=== PATIENT | female | born 1970 | race Caucasian/White ===

== ENCOUNTER → 2017-10-29 | Outpatient (CLI) | payer BC ==
--- NOTE | 2017-10-29 11:22 | US ---
EXAMINATION TYPE: US liver DATE OF EXAM: 10/29/2017 COMPARISON: CT CLINICAL HISTORY: R94.5 Abnormal Liver Function Test. EXAM MEASUREMENTS: Liver Length: 18.3 cm Gallbladder Wall: 0.2 cm CBD: 0.6 cm Right Kidney: 11.2 x 7.3 x 4.7 cm Large body habitus Pancreas: hyperechoic Liver: attenuated posteriorly and hyperechoic suggests fatty liver Gallbladder: wnl Evidence for sonographic Lynn's sign: No CBD: wnl Right Kidney: No hydronephrosis or masses seen IMPRESSION: 1. Fatty liver.
== END | disposition home or self-care (01) ==
LOC: RADUSWWP 10:44
PROVIDERS: ATTEND Internal Medicine
DX: K76.0 Fatty (change of) liver, not elsewhere classified (principal); R94.5 Abnormal results of liver function studies
CPT/HCPCS: 76705

== ENCOUNTER 2018-07-10 13:38 | Emergency (ER) | payer BC, OTHER ==
[2018-07-10 13:46] VITALS: RESP 16
[2018-07-10] MEDS ORDERED: KETOROLAC 60 MG/2 ML VIAL IM STA (13:59)
--- NOTE | 2018-07-10 14:10 | ED ---
Back Pain HPI - General Chief Complaint: Back Pain/Injury Stated Complaint: Fall Source: patient Limitations: no limitations - History of Present Illness Initial Comments: 47-year-old female with past medical history of diabetes and chronic back pain presenting today for chief complaint of fall. Patient states she was at work, at an elevated housing a half-way. She states she was walking down the steps , that were not yet shoveled when she fell then slid down 3-4 steps. She denies any head or neck injury, loss of consciousness, or current headache. Patient does admit to lower thoracic back pain where she made initial contact as well as some lumbar low back pain. Patient states it feels mostly muscular. Patient states pain increases with palpation. Denies any loss of bowel bladder control, urinary retention, numbness, tingling paresthesias in lower extremities. Patient denies any hip knee ankle pain or injury to any other extremity. Pt did note some superficial scratches of the left forearm, she states tetanus up to date in the last 5 years. Remainder of ROS (-), patient denies any recent fever, chills, shortness of breath, chest pain, back pain, abdominal pain, nausea or vomiting, numbness or tingling, dysuria or hematuria, constipation or diarrhea, headaches or visual changes, or any other complaints. Upon arrival patient is well-appearing, ambulatory without difficulty. She denies taking any medication prior to arrival. - Related Data Home Medications Medication Instructions Recorded Confirmed Ergocalciferol [Vitamin D2] 50,000 unit PO MO 07/10/18 07/10/18 Liraglutide [Victoza 2-Brennan] 1.8 mg SQ DAILY 07/10/18 07/10/18 Olmesartan [Benicar] 20 mg PO DAILY 07/10/18 07/10/18 Previous Rx's Medication Instructions Recorded Cyclobenzaprine [Flexeril] 10 mg PO HS 5 Days #5 tab 07/10/18 Allergies Allergy/AdvReac Type Severity Reaction Status Date / Time erythromycin base Allergy Rash/Hives Verified 07/10/18 13:57 hydromorphone HCl Allergy Unknown Verified 07/10/18 13:57 [From Dilaudid] Penicillins Allergy Rash/Hives Verified 07/10/18 13:57 Review of Systems ROS Statement: Those systems with pertinent positive or pertinent negative responses have been documented in the HPI. ROS Other: All systems not noted in ROS Statement are negative. Past Medical History Past Medical History: Diabetes Mellitus History of Any Multi-Drug Resistant Organisms: MRSA Date of last positivie culture/infection: 2012 MDRO Source:: stomach Past Surgical History: Section Additional Past Surgical History / Comment(s): cyst removal on right knee Past Psychological History: No Psychological Hx Reported Smoking Status: Former smoker Past Alcohol Use History: Rare Past Drug Use History: None Reported General Exam - General Exam Comments Initial Comments: General: The patient is awake and alert, in no distress, and does not appear acutely ill. Eye: +3 mm pupils are equal, round and reactive to light, extra-ocular movements are intact. No nystagmus. There is normal conjunctiva bilaterally. No signs of icterus. Ears, nose, mouth and throat: There are moist mucous membranes and no oral lesions. No midline tenderness to palpation of the cervical spine or paravertebral. Patient fully range the C-spine for flexion, extension, lateral flexion and rotation. Neck: The neck is supple, there is no tenderness or JVD. Cardiovascular: There is a regular rate and rhythm. No murmur, rub or gallop is appreciated. Respiratory: Lungs are clear to auscultation, respirations are non-labored, breath sounds are equal. No wheezes, stridor, rales, or rhonchi. Gastrointestinal: Soft, non-distended, non-tender abdomen without masses or organomegaly noted. There is no rebound or guarding present. Musculoskeletal: Upon inspection of the back there is no abrasions lacerations or ecchymosis. Patient has mild tenderness midline to palpation of the lower thoracic spine, no midline tenderness to palpation of the lumbar spine. Most tenderness is paravertebral and of the surrounding vascular musculature. Normal ROM, no tenderness at the hips, knees ankles, elbows shoulders and wrists. Strength 5/5 of all joints of the upper and lower extremities. Sensation intact of the lower and upper extremities equal b/l no saddle anesthesia. Radial and DP pulses equal bilaterally 2+. +2/5 DTR of the patellar and achilles LE b/l. No myoclonus or fasciculations. Neurological: A&O x 3. CN II-XII intact, There are no obvious motor or sensory deficits. Coordination appears grossly intact. Speech is normal. Skin: Skin is warm and dry and no rashes or lesions are noted. Psychiatric: Cooperative, appropriate mood & affect, normal judgment. Limitations: no limitations Course Vital Signs 07/10/18 07/10/18 13:43 15:05 Temperature 97.9 F 98.1 F Pulse Rate 86 80 Respiratory 16 16 Rate Blood Pressure 136/80 135/83 O2 Sat by Pulse 99 97 Oximetry Medical Decision Making - Medical Decision Making 47-year-old female presented for fall. Patient admits to lower thoracic and lumbar pain, mostly paravertebral of the musculature of the back. X-rays obtained due to mild midline tenderness of the lower thoracic spine. Patient denies any shortness of breath, abdominal injury, injury to any other extremity. Patient is neurovascularly intact, there isconcerning symptoms of cauda equina. Patient appears well. Patient was given Toradol for pain management. Imaging revealed. At this time I do feel patient is stable for discharge with prescription for Flexeril for muscle tension/spasm. Patient is to follow-up with primary care provider in next 2-3 days. Patient is agreeable plan discharge. Case is discussed with attending provider prior to discharge who agreed the impression and plan. Disposition Clinical Impression: Back pain, Fall, Strain of mid-back Disposition: HOME SELF-CARE Instructions: Acute Low Back Pain (ED), Thoracic Back Strain (ED) Additional Instructions: Please use medication as discussed. Please do not drive, drink alcohol, work or operate machinery while under the influence of Flexeril as discussed. Please follow-up with family doctor in the next 2 days. Please return to emergency room if the symptoms increase or worsen or for any other concerns, as discussed. Prescriptions: Cyclobenzaprine [Flexeril] 10 mg PO HS 5 Days #5 tab Is patient prescribed a controlled substance at d/c from ED?: No Referrals: Warner Centeno III, MD [Primary Care Provider] - 1-2 days Time of Disposition: 14:44
--- NOTE | 2018-07-10 14:35 | XR ---
EXAMINATION TYPE: XR thoracic spine complete DATE OF EXAM: 07/10/2018 COMPARISON: NONE HISTORY: Back pain after falling TECHNIQUE: 3 views FINDINGS: The thoracic vertebra have fairly normal spacing and alignment. Posterior elements are inta ct. There is minimal spur formation. There is no paraspinal mass. IMPRESSION: Mild spurring. No fracture seen. No change compared to chest x-ray 03/05/2015.
--- NOTE | 2018-07-10 14:36 | XR ---
EXAMINATION TYPE: XR lumbar spine 2 or 3V DATE OF EXAM: 07/10/2018 COMPARISON: NONE HISTORY: Pain after fall TECHNIQUE: 3 views FINDINGS: The lumbar vertebra have normal alignment. There is slight narrowing at L4-5 disc space. Po sterior elements are intact. There is no compression fracture. Sacroiliac joints appear normal. IMPRESSION: No acute abnormality of the lumbar spine. No fracture.
[2018-07-10 15:06] VITALS: BP 135/83; PULSE 80; TEMP 98.1
== END 2018-07-10 15:15 | disposition home or self-care (01) ==
LOC: EC 13:38
DX: S29.012A Strain of muscle and tendon of back wall of thorax, initial encounter (principal); M54.5 Low back pain; S50.812A Abrasion of left forearm, initial encounter; E11.9 Type 2 diabetes mellitus without complications; Z87.891 Personal history of nicotine dependence; Z88.0 Allergy status to penicillin; Z88.1 Allergy status to other antibiotic agents; Z88.5 Allergy status to narcotic agent; Z79.84 Long term (current) use of oral hypoglycemic drugs; Z79.899 Other long term (current) drug therapy; Z86.14 Personal history of Methicillin resistant Staphylococcus aureus infection; W10.9XXA Fall (on) (from) unspecified stairs and steps, initial encounter; Y93.01 Activity, walking, marching and hiking; Y92.69 Other specified industrial and construction area as the place of occurrence of the external cause; Y99.0 Civilian activity done for income or pay
CPT/HCPCS: 72072; 72100; 99283; 96372; J1885

== ENCOUNTER → 2018-07-15 | Outpatient (CLI) | payer OTHER ==
--- NOTE | 2018-07-15 14:34 | XR ---
EXAMINATION TYPE: XR shoulder complete RT, XR scapula RT DATE OF EXAM: 07/15/2018 CLINICAL HISTORY: pain TECHNIQUE: Three views of the right shoulder are obtained. 2 views of the right scapula are also sub mitted. COMPARISON: None FINDINGS: There is no acute fracture/dislocation evident. The acromioclavicular and glenohumeral alfred int spaces appear within normal limits. The visualized ribs are intact and unremarkable. IMPRESSION: 1. There is no acute fracture or dislocation. ICD 10 NO FRACTURE, INITIAL EVALUATION
== END | disposition home or self-care (01) ==
LOC: RADXRMAIN 14:00
PROVIDERS: ATTEND Emergency Medicine
DX: S40.011D Contusion of right shoulder, subsequent encounter (principal); S20.221D Contusion of right back wall of thorax, subsequent encounter

== ENCOUNTER → 2020-11-05 | Outpatient (CLI) | payer BC ==
--- NOTE | 2020-11-05 16:29 | XR ---
EXAMINATION TYPE: XR lumbosacral spine min 4V DATE OF EXAM: 11/05/2020 CLINICAL HISTORY: Pain radiating into the legs TECHNIQUE: Frontal, lateral, and oblique images of the lumbar spine are obtained. COMPARISON: 07/10/2018 FINDINGS: There are 5 lumbar type vertebral bodies identified. The lumbar spine shows satisfactory alignment without evidence of acute fracture or dislocation. Chronic fracture or unfused ossicle at t he left transverse process of L1. Tiny anterior osteophytes are seen. Vertebral body heights and disk space heights are within normal limits. The oblique images appear within normal limits. The overl alexandra soft tissue appears unremarkable. IMPRESSION: 1. No acute fracture or dislocation is seen in the lumbar spine. 2. Chronic fracture or unfused ossicle at the left transverse process of L1.
== END | disposition home or self-care (01) ==
LOC: RADXRMAIN 14:47
PROVIDERS: ATTEND Physician Assistant Medical
DX: M54.5 Low back pain (principal)
CPT/HCPCS: 72110

== ENCOUNTER 2020-11-13 21:35 | Emergency (ER) | payer BC ==
[2020-11-13 21:48] VITALS: TEMP 97.9
[2020-11-13] MEDS ORDERED: ONDANSETRON 4 MG/2 ML VIAL IVP STA (22:20)
[2020-11-13] MEDS ORDERED: SODIUM CHLORIDE 0.9% 500 ML 500 ML IV ONE (22:20)
[2020-11-13] MEDS ORDERED: MORPHINE SULFATE 4 MG/ML SYRINGE IVP STA (22:20)
[2020-11-13 22:58] LABS: Basophils # (A) 0.1 k/uL (0-0.2); Basophils % (A) 1 %; Eosinophils # (A) 0.2 k/uL (0-0.7); Eosinophils % (A) 3 %; HCT 41.9 % (34.0-46.0); HGB 13.3 gm/dL (11.4-16.0); Lymphocytes # (A) 2.4 k/uL (1.0-4.8); Lymphocytes % (A) 34 %; MCHC 31.8 g/dL (31.0-37.0); MCV 87.9 fL (80.0-100.0); Mean Platelet Volume 8.5; Monocytes # (A) 0.3 k/uL (0-1.0); Monocytes % (A) 5 %; Neutrophils # (A) 3.9 k/uL (1.3-7.7); Neutrophils % (A) 56 %; Platelet Count 252 k/uL (150-450); RBC 4.76 m/uL (3.80-5.40); WBC 6.9 k/uL (3.8-10.6)
[2020-11-13 23:14] LABS: ALT 24 U/L (4-34); AST 30 U/L (14-36); African American GFR (CKD) >90 (>60 ml/min/1.73 sqM); Alkaline Phosphatase 66 U/L (38-126); Anion Gap 7 mmol/L; Blood Urea Nitrogen 17 mg/dL (7-17); Calcium 9.4 mg/dL (8.4-10.2); Carbon Dioxide 22 mmol/L (22-30); Chloride 111 mmol/L (98-107); Creatine Kinase 92 U/L (30-135); Glucose 103 mg/dL (74-99); Magnesium 2.1 mg/dL (1.6-2.3); Non-African American GFR(CKD) >90 (>60 ml/min/1.73 sqM); Potassium 4.1 mmol/L (3.5-5.1); Sodium 140 mmol/L (137-145); Total Bilirubin 0.2 mg/dL (0.2-1.3); Total Protein 6.9 g/dL (6.3-8.2)
[2020-11-13 23:35] LABS: Erythrocyte Sedimentation Rate 21 mm/hr (0-20)
[2020-11-14] MEDS ORDERED: ACET/COD 300 MG/30 MG STARTER PACK 6 TAB BTL PO STA (00:04)
--- NOTE | 2020-11-14 00:05 | ED ---
General Adult HPI - General Chief complaint: Extremity Problem,Nontraumatic Stated complaint: leg pain Time Seen by Provider: 11/13/20 22:11 Source: patient, family Mode of arrival: wheelchair Limitations: no limitations - History of Present Illness Initial comments: 50 year-old female patient presents to the emergency department for evaluation of bilateral lower extremity pain and cramping. Patient states that symptom stated about two months ago. States that she has constant generalized pain to the legs. States she will occasionally have sharp, stabbing pain. Denies any swelling. Denies any rash or swelling. States her physician has been evaluating, did have xrays performed. She denies stopping or starting any medications. Denies any known injury. Denies back pain. Patient denies any recent cough, shortness of breath, chest pain, abdominal pain, nausea, vomiting, diarrhea, constipation, numbness, tingling, dizziness, weakness, hematuria, dysuria, urinary urgency, urinary frequency, headache, visual changes, or any other complaints. - Related Data Home Medications Medication Instructions Recorded Confirmed Ergocalciferol [Vitamin D2] 50,000 unit PO MO 07/10/18 07/10/18 Liraglutide [Victoza 2-Brennan] 1.8 mg SQ DAILY 07/10/18 07/10/18 Olmesartan [Benicar] 20 mg PO DAILY 07/10/18 07/10/18 Previous Rx's Medication Instructions Recorded Cyclobenzaprine [Flexeril] 10 mg PO HS 5 Days #5 tab 07/10/18 Allergies Allergy/AdvReac Type Severity Reaction Status Date / Time erythromycin base Allergy Rash/Hives Verified 11/13/20 21:47 hydromorphone HCl Allergy Unknown Verified 11/13/20 21:47 [From Dilaudid] Penicillins Allergy Rash/Hives Verified 11/13/20 21:47 Review of Systems ROS Statement: Those systems with pertinent positive or pertinent negative responses have been documented in the HPI. ROS Other: All systems not noted in ROS Statement are negative. Past Medical History Past Medical History: Diabetes Mellitus History of Any Multi-Drug Resistant Organisms: MRSA Date of last positivie culture/infection: 2012 MDRO Source:: stomach Past Surgical History: Section Additional Past Surgical History / Comment(s): cyst removal on right knee Past Psychological History: No Psychological Hx Reported Smoking Status: Never smoker Past Alcohol Use History: Rare Past Drug Use History: None Reported General Exam Limitations: no limitations General appearance: alert, in no apparent distress Respiratory exam: Present: normal lung sounds bilaterally. Absent: respiratory distress, wheezes, rales, rhonchi, stridor Cardiovascular Exam: Present: regular rate, normal rhythm, normal heart sounds. Absent: systolic murmur, diastolic murmur, rubs, gallop, clicks GI/Abdominal exam: Present: soft, normal bowel sounds. Absent: distended, t enderness, guarding, rebound, rigid Extremities exam: Present: normal inspection, full ROM, normal capillary refill, other (skin to the lower extremities is pink, warm, dry. Cap refill less than 3 seconds. Pedal and posttibial pulses are 2+ and equal bilaterally. Full range of motion intact. No joint swelling.). Absent: tenderness, pedal edema, joint swelling, calf tenderness Back exam: Present: normal inspection. Absent: vertebral tenderness Neurological exam: Present: alert, oriented X3, CN II-XII intact Psychiatric exam: Present: normal affect, normal mood Skin exam: Present: warm, dry, intact, normal color. Absent: rash Course Vital Signs 11/13/20 11/14/20 21:43 00:24 Temperature 97.9 F Pulse Rate 67 62 Respiratory 18 16 Rate Blood Pressure 153/71 142/78 O2 Sat by Pulse 96 97 Oximetry Medical Decision Making - Medical Decision Making 50-year-old female patient presents to the emergency department today for evaluation of bilateral lower extremity pain. Symptoms are going on for the last 2 months. Physical examination is unremarkable. Neurovascular status is intact. Did review outpatient x-rays of the lumbar spine which were unremarkable. Patient was given IV fluids, pain medication. Labs are unremarkable. Upon reevaluation reports she is still having pain. She is given another dose of pain medicine will be discharged follow up with her primary care physician for recheck in 1-2 days. Return parameters discussed in detail. She verbalizes understanding and agrees with this plan. Case discussed with my attending Dr. Davis. - Lab Data Result diagrams: 11/13/20 22:46 11/13/20 22:46 Lab Results 11/13/20 11/13/20 11/13/20 Range/Units 22:46 22:46 22:46 WBC 6.9 (3.8-10.6) k/uL RBC 4.76 (3.80-5.40) m/uL Hgb 13.3 (11.4-16.0) gm/dL Hct 41.9 (34.0-46.0) % MCV 87.9 (80.0-100.0) fL MCH 28.0 (25.0-35.0) pg MCHC 31.8 (31.0-37.0) g/dL RDW 14.0 (11.5-15.5) % Plt Count 252 (150-450) k/uL MPV 8.5 Neutrophils % 56 % Lymphocytes % 34 % Monocytes % 5 % Eosinophils % 3 % Basophils % 1 % Neutrophils # 3.9 (1.3-7.7) k/uL Lymphocytes # 2.4 (1.0-4.8) k/uL Monocytes # 0.3 (0-1.0) k/uL Eosinophils # 0.2 (0-0.7) k/uL Basophils # 0.1 (0-0.2) k/uL ESR 21 H (0-20) mm/hr Sodium 140 (137-145) mmol/L Potassium 4.1 (3.5-5.1) mmol/L Chloride 111 H (98-107) mmol/L Carbon Dioxide 22 (22-30) mmol/L Anion Gap 7 mmol/L BUN 17 (7-17) mg/dL Creatinine 0.55 (0.52-1.04) mg/dL Est GFR (CKD-EPI)AfAm >90 (>60 ml/min/1.73 sqM) Est GFR (CKD-EPI)NonAf >90 (>60 ml/min/1.73 sqM) Glucose 103 H (74-99) mg/dL Plasma Lactic Acid Ventura 0.9 (0.7-2.0) mmol/L Calcium 9.4 (8.4-10.2) mg/dL Magnesium 2.1 (1.6-2.3) mg/dL Total Bilirubin 0.2 (0.2-1.3) mg/dL AST 30 (14-36) U/L ALT 24 (4-34) U/L Alkaline Phosphatase 66 (38-126) U/L Creatine Kinase 92 (30-135) U/L C-Reactive Protein 1.0 H (<1.0) mg/dL Total Protein 6.9 (6.3-8.2) g/dL Albumin 4.0 (3.5-5.0) g/dL Disposition Clinical Impression: Leg pain Disposition: HOME SELF-CARE Condition: Good Instructions (If sedation given, give patient instructions): Leg Pain (ED) Additional Instructions: Follow-up with your primary care physician for recheck in 1-2 days. Take pain medication sparingly as needed for severe pain. Return for any new, worsening, or concerning symptoms per Is patient prescribed a controlled substance at d/c from ED?: No Referrals: Talia Peters MD [Primary Care Provider] - 1-2 days Time of Disposition: 00:05
[2020-11-14] MEDS ORDERED: MORPHINE SULFATE 4 MG/ML SYRINGE IVP ONE (00:15)
[2020-11-14 00:28] VITALS: BP 142/78; PULSE 62; RESP 16
== END 2020-11-14 00:30 | disposition home or self-care (01) ==
LOC: EC 21:35
DX: M79.605 Pain in left leg (principal); M79.604 Pain in right leg; E11.9 Type 2 diabetes mellitus without complications; Z88.0 Allergy status to penicillin
CPT/HCPCS: 36415; 80053; 85652; 82550; 83605; 83735; 85025; 86140; 99283; 96374; 96375; 96376; 96361; J2270 ×2; J2405

== ENCOUNTER → 2021-01-07 | Outpatient (CLI) | payer BC ==
--- NOTE | 2021-01-07 16:01 | CT ---
EXAMINATION TYPE: CT lumbar spine wo con DATE OF EXAM: 01/07/2021 COMPARISON: 12/26/2020 HISTORY: Low back, bilateral hip and leg pain x 2-[address] DLP: 1540.8 mGycm CONTRAST: None TECHNIQUE: CT of the lumbar spine is performed on a spiral scan at 3 mm thick sections. Reconstructed images are performed in the coronal and sagittal planes. FINDINGS: No focal disc herniations or significant disc bulges are evident. No spinal canal stenosis or neural foraminal stenosis is present. There is spondylolysis of L5. Vertebral alignment appears normal. IMPRESSION: Spondylolysis L5.
== END | disposition home or self-care (01) ==
LOC: RADCTMAIN 12:25
PROVIDERS: ATTEND Orthopaedic Surgery
DX: M47.816 Spondylosis without myelopathy or radiculopathy, lumbar region (principal)
CPT/HCPCS: 72131

== ENCOUNTER → 2021-02-26 | Outpatient (CLI) | payer BC ==
--- NOTE | 2021-02-27 08:15 | MR ---
EXAMINATION TYPE: MR lumbar spine wo/w con DATE OF EXAM: 02/26/2021 COMPARISON: 01/07/2021 CT lumbar spine HISTORY: Low back pain CONTRAST: 11 mL intravenous Gadavist. TECHNIQUE: Multiplanar, multisequence images of the lumbar spine were acquired. FINDINGS: L5-S1: There is a small central protrusion at L5-S1 with minimal anterior thecal sac contact. No AP s nini canal stenosis is present. Neural foramen are patent mild facet degenerative changes present. T he spondylolysis at L5 is not well-visualized on the current exam. L4-L5: Mild disc bulges anterior thecal sac contact. This may be slightly greater in the left paracen tral region. No AP spinal canal stenosis present. Neural foramen are patent. L3-L4: Mild disc bulges mild anterior thecal sac compression. No AP spinal canal stenosis is present. Neural foramen are patent No spinal canal stenosis. No foraminal stenosis. L2-L3: No significant disc bulge or disc herniation. No spinal canal stenosis. No foraminal stenosi s. L1-L2: No significant disc bulge or disc herniation. No spinal canal stenosis. No foraminal stenosi s. Hemangioma is within the L1 vertebral level. T12-L1: No significant disc bulge or disc herniation. No spinal canal stenosis. No foraminal stenos is. No abnormal enhancement. IMPRESSION: 1. Mild disc bulging present at L3-4 to L5-S1. No AP spinal canal stenosis or significant thecal sac compression is evident.
== END | disposition home or self-care (01) ==
LOC: RADMRIMAIN 12:44
PROVIDERS: ATTEND Orthopaedic Surgery
DX: M51.27 Other intervertebral disc displacement, lumbosacral region (principal)
CPT/HCPCS: 72158; A9585

== ENCOUNTER 2021-03-13 06:30 | Day surgery (SDC) | payer BC ==
[2021-03-11 17:15] VITALS: BMI 41.5
[~2021-03-13 06:30] MED LIST: LACTATED RINGERS 1,000 ML IV SCH
[2021-03-13 06:54] VITALS: TEMP 97
[2021-03-13 07:03] LABS: Glucose,Whole Blood 103 mg/dL (75-99)
[2021-03-13] MEDS ORDERED: fentaNYL (PF) 50 MCG/ML 2 ML AMP ONE (07:04)
[2021-03-13] MEDS ORDERED: methylPREDNISolone ACETATE 40 MG/ML 1 ML VIAL ONE (07:04)
[2021-03-13] MEDS ORDERED: MIDAZOLAM 2 MG/2 ML VIAL ONE (07:04)
[2021-03-13] MEDS ORDERED: IOPAMIDOL M200 10 ML VIAL ONE (07:04)
--- NOTE | 2021-03-13 07:19 | P.PCN ---
Date of Procedure: 03/13/21 Procedure(s) Performed: PREOPERATIVE DIAGNOSIS: 1- Lumbar Degenerative Disc Diseases 2-Lumbar spondylosis . POSTOPERATIVE DIAGNOSIS: Same as preop diagnosis. PROCEDURE 1. Lumbar epidural steroid injection under fluoroscopic guidance at the L5-S1 level. (Fluoroscopy imaging was available in radiology department) 2. Lumbar epidurogram. ANESTHESIA: Local with 1% lidocaine 3 ml and , moderate sedation with intravenous Versed 2 mg ,and fentanyle 50 Mcg EBL: Minimal PROCEDURE INDICATION: The patient with low back pain and radiculitis symptoms unresponsive to conservative treatment. Fluoroscopy was used to optimize visualization of the needle placement and to maximize safety. PROCEDURE DESCRIPTION / TECHNIQUE: The patient was seen and identified in the preoperative area. Risks, benefits, complications including but not limited to infections ,bleeding ,allergic reaction to the medications ,nerve damage and not complete pain releife , and alternatives were discussed with the patient. The patient agreed to proceed with the procedure and signed the consent. IV was started, and vital signs were stable. Patient was taken to the OR and time out was completed. The patient was placed in the prone position on procedure table and a pillow was placed under the abdomen to reduce lumbar lordosis. The lumbosacral area was prepped and draped in the usual sterile fashion.ere closely monitored during the procedure. Conscious sedation was used during the procedure to decrease patients anxiety. Vital signs was monitered during the entire procedure. Using anterior-posterior fluoroscopy, the L5-S1 interlaminar space was identified and the skin over this site was marked and then infiltrated with 1% lidocaine subcutaneously. Subsequently, a 20-gauge Tuohy epidural needle was inserted and advanced toward the epidural space using the ``Loss of resistance technique and guided by AP and lateral fluoroscopy. The correct needle position in the epidural space was verified with the injection of 2 mL of the water soluble contrast dye Isovue 200 contrast and observing an excellent epidurogram with the epidural spread of the dye, after negative aspiration for blood and CSF and in the absence of paresthesias. Again after negative aspiration, a 6 ml mixture containing 40 mg of Depo-medrol , and 2 ml of preservative free Normal Saline, and 2 ml of preservative free lidocaine 1% solution was injected and a washout of epidurogram was seen. Needle was withdrawn intact, skin was cleansed, and bandages were applied. COMPLICATIONS: None DISPOSITION / PLANS: The patient was placed in a supine position and transferred to the recovery area in a stable condition for observation. There was no evidence of lower extremity motor or sensory deficit after the procedure. Patient was discharged from the recovery room after meeting discharge criteria. Home discharge instructions were given to the patient by the staff. The patient was reexamined prior to discharge. The patient will schedule a follow up in the clinic in 2-4 weeks.
[2021-03-13] MEDS ORDERED: IV FLUID CONTINUATION 1,000 ML IV ONE (07:25)
[2021-03-13 07:36] VITALS: BP 110/72; PULSE 88; RESP 16
--- NOTE | 2021-03-13 08:32 | FL ---
Fluoroscopy HISTORY: Pain 1 seconds fluoroscopy time supplied to the referring clinician. 1 intraoperative C-arm images docume nt the procedure. See dictated report from anesthesia.
== END 2021-03-13 08:00 | disposition home or self-care (01) ==
LOC: ORPAIN 06:30
PROVIDERS: ATTEND Specialist
DX: M47.26 Other spondylosis with radiculopathy, lumbar region (principal); M51.16 Intervertebral disc disorders with radiculopathy, lumbar region; Z88.1 Allergy status to other antibiotic agents; Z88.5 Allergy status to narcotic agent; Z88.0 Allergy status to penicillin
CPT/HCPCS: 81025; 62323; J2250; J1030; J3010; Q9966

== ENCOUNTER → 2021-04-10 | Outpatient (CLI) | payer BC ==
--- NOTE | 2021-04-10 12:49 | P.PN ---
Subjective Progress Note Date: 04/10/21 Follow-up visit for this 50 years old female with a chronic history of severe low back pain with radiation to right lower extremity, diagnosed with lumbar degenerative disc disease and lumbar spondylosis with lumbar facet arthropathy, status post lumbar epidural steroid injection at L5-S1, patient reported that she had more than 70% improvement of her low back pain after the injection and the pain relief lasted for 3 weeks, she denies any motor or sensory deficit she denies any fever or night sweats and she reported that currently he has pain in the low back area with radiation mainly to the right lower extremity, she already done physical therapy without any significant benefit , and she continues to use Lyrica 50 mg 3 times a day Motrin 800 mg 3 times a day and baclofen 20 mg 3 times a day she denies any side effect of the medication and she reported the correct medication is not helping enough to control her pain Objective - Vital Signs Vital signs: Intake & Output 04/09/21 04/10/21 04/10/21 18:59 06:59 18:59 Weight 116.12 kg - Exam Physical Examinations : -Constitutiona : Cooperative , not in acute distress . -HEENT : nech : supple , no Lymphadenopathy , normal thyroid size . : eyes : no ptosis , no icterus, no photophobia . - neurologic : Cranial nerve II to XII intact , no focal neurological deffecit . -psychatric : alert , oriented X 3 , appropriate affect , intact judgment and insight . -Lymphatic : no Lymphadenopathy . - musculoskeltal : Lumber spine moter stegnth lower extremities ,thigh and legs 5/5 Right side , 5/5 Left side deep tendon reflexes : normal Knee Jerk , normal ankle Jerk lumber facet Loading Test =positive Right , positive Left Range of motion of the lumbar spine Flexion 30 degrees, extension 10 degrees strait leg raising test = positive at 30 degree and side and is negative left side Fabere test= positive Right . Assessment and Plan Plan: Assessment and plan= lumbar degenerative disc disease. Lumbar spondylosis and lumbar facet arthropathy. A she failed conservative treatment, Lodine, physical therapy and medication management Patient had more than 70% improvement of her pain after lumbar epidural steroid injection, and could benefit from repeat lumbar epidural steroid injection at L5-S1 right paramedian approach. - PQRS measures = - Patient's medications are documented in the chart. -Tobacco use is positive, and counseling.Given. -Patient's has not received pneumococcal vaccine. -Advanced care planning discussed, patient not eligible. -Opiate contract not signed. -Pain positive and follow-up visit/procedure is scheduled. -Patient's blood pressure measured [ 142/82 ] , and documented in the record ,and patient will follow up with the primary care. -Patient's weight was measured and body mass index [ ] above the normal limits and counseling was done. and patient instructed to follow-up with the primary care physician. -Patient was not identified as an unhealthy alcohol user Time with Patient: Less than 30
[2021-04-10 12:55] VITALS: BP 142/82; PULSE 72; RESP 18; TEMP 98.3
== END ==
LOC: PNWHC3 12:22
PROVIDERS: ATTEND Specialist
DX: M47.816 Spondylosis without myelopathy or radiculopathy, lumbar region (principal); M51.36 Other intervertebral disc degeneration, lumbar region; Z88.1 Allergy status to other antibiotic agents; Z88.0 Allergy status to penicillin; Z88.5 Allergy status to narcotic agent; Z87.891 Personal history of nicotine dependence; Z88.8 Allergy status to other drugs, medicaments and biological substances
CPT/HCPCS: 99211

== ENCOUNTER → 2021-05-23 | Outpatient (CLI) | payer BC | END | disposition home or self-care (01) | LOC: LABPAT 11:47 | PROVIDERS: ATTEND Orthopaedic Surgery | DX: Z01.812 Encounter for preprocedural laboratory examination (principal); M47.816 Spondylosis without myelopathy or radiculopathy, lumbar region | CPT/HCPCS: 87070 ==

== ENCOUNTER 2021-06-03 06:24 | Inpatient (IN) | payer BC ==
[2021-05-30 10:07] VITALS: BMI 42.5
[~2021-06-03 06:24] MED LIST changes: +ACETAMINOPHEN TAB 500 MG TAB PO PRN; +DEXAMETHASONE SOD PHOSPHATE 4 MG/ML 1 ML VIAL IV ONE; +GABAPENTIN 300 MG CAP PO PRN; -LACTATED RINGERS 1,000 ML IV SCH; +ONDANSETRON 4 MG/2 ML VIAL IVP PRN
--- NOTE | 2021-06-03 06:24 | P.HPOR ---
History of Present Illness H&P Date: 05/26/21 Chief Complaint: Low back pain, LE radiculopathy Date of :[birth year] R14Age: 50 year Height: 5'5" Weight: 240 lbs BP:128/85 BMI: 39.9 kg/m2 Occupation: Det[employer] Patient Care VAS: 6 CHIEF COMPLAINT: Low back pain with bilateral lower extremity radiculopathy HISTORY: Xrays Brought xrays from outside facility which were reviewed Trauma or injury No Work-Related No Pain description aching, burning, sharp. Location posterior Activity Modification yes Hand Dominance right TREATMENTS COMPLETED: 6 weeks of PT completed? Yes How many sessions? >12 Did it help? No Physician directed home exercise completed? yes, No help Medications yes List: Motrin 800mg TID, lyrica 150mg TID, valium, medrol all without improvements. Alternative interventions Chiropractic?: yes, without improvements. Brace: No Injections Yes How many? 1 with 1 pending Did they help? No RFA: No HPI: Today Ms. Londono presents to the office for a pre-operative recheck of her low back and to discuss any questions or concerns the patient might have. Since the time of the last appointment the patient notes that her symptoms have not improved. Noting continued radiculopathic symptoms, right worse than left. She has failed all conservative treatments and is ready to proceed with the L5-S1 MIS TLIF discussed at the time of the last appointment. Patient denies any bladder or bowel issues, no perineal numbness/tingling, and ambulates without the use of any aides. HISTORY Patient last presented to the office on 04/24/2021 for reevaluation and MRI review of her Lumbar spine. She has an L5-S1 spondylolysis that she has been dealing with for over a year with flare ups and now increased neurological issues related. She states today that her legs are much more painful than they have been and that she is getting more radiating pain down her legs and into her buttock region b/l. She states she underwent ELENA with pain management and this gave her good relief for 2 weeks but it promptly wore off and she is back with more and even increased pain now. She continues to take her lyrica, valium, pain meds and antiinflammatories w/o relief. She is unable to continue with therapy at this t time due to pain. She does do home exercises and stretching but these do not seem to help the problem. She states she has no bowel or bladder issues. No genital numbness/tingling at this time. She states she is becoming miserable and sick of being in the pain she is in. She just wants to get back to her day to day living and feel better. She states she wants to purs ue surgical intervention at this time. This 50 year old female last presented on 12/26/2020 with low back pain. Patient denied any specific injury. She stated that she has had low back pain for 2-3 months. She reported bilateral hip pain that radiates down both of her legs. She did see a Chiropractor with no relief. Patient denied any bowel or bladder incontinence. She denied any genital region numbness. She is taking Lyrica 50mg twice daily, Motrin 800mg three times daily and Baclofen 20mg three times daily. Patient was ambulating independently. Patient states that her symptoms have not improved since her last appointment on 12/26/2020. She notes that she only went to one of her physical therapy visits due to the landers of the copay. Her pain is quite severe and is limiting her ROM and ability to ambulate quite extensively, stating that it is a 6/10 in the office today. Of note, she does present to the office without the use of any ambulatory aides. The patients' past social, medical, family, surgical history, as well as review of systems, have been reviewed. Please refer to the Neurosurgery History and Physical form that has been scanned in to our electronic medical record system. Review of Systems 14 points review of systems completed and as stated in HPI, all other systems reviewed are negative. Past Medical History Past Medical History: Diabetes Mellitus, Hyperlipidemia, Hypertension, Musculoskeletal Disorder, Rheumatoid Arthritis (RA) Additional Past Medical History / Comment(s): Migraine headaches, lumbar stenosis, herniated discs, constipation. History of Any Multi-Drug Resistant Organisms: MRSA Date of last positivie culture/infection: 2012 MDRO Source:: stomach Past Surgical History: Section, Orthopedic Surgery, Tubal Ligation, Uterine Ablation Additional Past Surgical History / Comment(s): Cyst removed fromo right knee, Section X3, Pain Clinic Procedure. Past Anesthesia/Blood Transfusion Reactions: Previous Problems w/ Anesthesia Additional Past Anesthesia/Blood Transfusion Reaction / Comment(s): "Stopped breathing" during 2nd Section because spinal went too high. Past Psychological History: No Psychological Hx Reported Smoking Status: Former smoker Past Alcohol Use History: Rare Additional Past Alcohol Use History / Comment(s): Quit smoking 7 yrs ago, smoked on & off for a couple of years. Past Drug Use History: None Reported - Past Family History Mother Family Medical History: No Reported History Medications and Allergies Home Medications Medication Instructions Recorded Confirmed Type Liraglutide [Victoza 2-Brennan] 1.8 mg SQ DAILY 07/10/18 05/30/21 History Ascorbic Acid [Vitamin C] 500 mg PO DAILY 03/11/21 05/30/21 History Atorvastatin [Lipitor] 10 mg PO DAILY 03/11/21 05/30/21 History Baclofen [Lioresal] 20 mg PO TID 03/11/21 05/30/21 History Black Cohosh 540 mg PO DAILY 03/11/21 05/30/21 History Cholecalciferol [Vitamin D3 (25 25 mcg PO DAILY 03/11/21 05/30/21 History Mcg = 1000 Iu)] Docusate [Colace] 100 mg PO DAILY 03/11/21 05/30/21 History Empagliflozin/Metformin HCl 1 each PO DAILY 03/11/21 05/30/21 History [Synjardy 12.5-500 mg Tablet] Hydroxychloroquine Sulfate 200 mg PO BID 03/11/21 05/30/21 History [Plaquenil] Ibuprofen [Motrin] 800 mg PO Q8H 03/11/21 05/30/21 History Linaclotide [Linzess] 145 mcg PO DAILY 03/11/21 05/30/21 History Pregabalin [Lyrica] 150 mg PO TID 03/11/21 05/30/21 History Propranolol HCl 60 mg PO DAILY 03/11/21 05/30/21 History Allergies Allergy/AdvReac Type Severity Reaction Status Date / Time erythromycin base Allergy Rash/Hives Verified 05/30/21 09:55 hydromorphone HCl Allergy Rash/Hives Verified 05/30/21 09:55 [From Dilaudid] Penicillins Allergy Rash/Hives Verified 05/30/21 09:55 semaglutide [From Ozempic] AdvReac yeast Verified 05/30/21 09:55 infection Physical Examination Osteopathic Statement: *. No significant issues noted on an osteopathic structural exam other than those noted in the History and Physical/Consult. General: Awake, alert, appropriate for age, in no acute distress. HEENT: No unusual neck masses around region of lateral neck triangle, thyroid, supraclavicular groove Heart: Regular rate and rhythm, normal S1, S2 and no murmur/gallop. Lungs: Clear to auscultation bilaterally with no use of accessory muscles. Extremities: Skin warm and dry without acute lesions, coloration, temperature, skin intact, no tenderness or erythema Integument: Hairy patches: Absent Dorsal skin dimples: Absent Cafe au lait spots: Absent Surgical incisions: No Palpation: Please see Pain drawing on Intake sheet for further detail. Midline spinal tenderness: No E6 Paralumbar tenderness: yes E6 Parathoracic tenderness: No E6 Buttocks tenderness: No E6 Special findings: yes Mild step off L5-S1 while leaning forward. She can forward bend OK, but has extreme difficulty standing back up straight due to pain POSTURAL and MUSCULO-SKELETAL EVALUATION: Coronal Balance: NEUTRAL Recumbent testing: Patient is able to lay flat on back Sagittal Balance: NEUTRAL Shoulder Profile: LEVEL Pelvic Girdle: LEVEL Neck ROM: UNRESTRICTED Lumbar ROM: RESTRICTED Shoulder ROM: Symmetrical Hip ROM: Symmetrical Knee ROM: Symmetrical Hands: Normal appearance, symmetrical Feet: Normal appearance, Symmetrical VASCULAR STATUS : LEFT RIGHT Wrist Pulses INTACT INTACT Pedal Pulses (Dors. pedis & post.tibialis) INTACT INTACT Color NORMAL NORMAL Edema Absent Absent NEUROLOGIC EXAMINATION: Mental Status:Awake and alert, fully oriented, with normal attention, concentration and memory, and fluent, appropriate speech. Cranial Nerves: I: Olfactory not tested. II: Visual acuity normal, no visual field deficit noted with confrontation. III,IV: Normal pupillary reflexes & intact extraocular movements without nystagmus. V,: Intact symmetrical facial sensation. VII: Intact symmetrical facial motor movement VIII: Hearing intact. IX,X: Intact gag, swallow, & normal voice. XI: Sternocleidomastoid, trapezius function intact. XII: Tongue midline with normal movements. L'hermitte's Sign: Negative / absent Spurling'Sign: Absent bilaterally. Cubital percussion test: Absent bilaterally. Tristen-Tinel sign - Carpal region: Absent bilaterally. Straight Leg Raising: Post on the R Crossed straight leg raise: positive O8 MOTOR EXAM (0-5/5, N/T) STRENGTH RIGHT LEFT Shoulder Abd (not part of the KYLAH score) 5 5 Elbow Flexors 5 5 Elbow Extensor 5 5 Wrist Dorsiflexors 5 5 Finger Abductor 5 5 Event Sales Manager 5 5 Hip Flexor (Not part of KYLAH Motor score) 5 5 Knee Flexor 5 5 Knee Extensor 5 5 Ankle dorsiflexor 4+ 5 Ankle plantarflexion 4+ 4+ Extensor hallucis 5 5 REFLEXES(0-4/2, NT) RIGHT LEFT Upper Extremities 2 2 Lower Extremities 1 2 Pathological Reflexes RIGHT LEFT Hernandez's Absent Absent Clonus Absent Absent Babinski Absent Absent # Indicates mechanical impairment Muscle appearance: Symmetrical, without signs of atrophy or dystrophy. Sensory system (0-4, N/T) Test type RU CRISTHIAN RL LL Joint-Position 2 2 2 2 Vibration 2 2 2 2 Pain & LT sense 2 2 2 2 Dermatomal Deficit: None None L5-S1 L5-S1 Gait and Functional Evaluation: Ambulatory aids: Independent Romberg's test: Intact bilaterally Toe heel walk / heel-toe walk intact while maintaining satisfactory balance? No Squatting/straightening w/o assistance to a min of 60 degree knee flexion? No Single leg stance: Trendelenburg sign negative bilaterally Hand and finger dexterity intact bilaterally? yes Disdiadochokinesis examination negative bilaterally? yes Results RADIOGRAPHIC STUDIES: XRay taken on 12/26/2020 of Lumbar was reviewed by Dr. Camargo and indicates: - Overall alignment is maintained in the sagittal and coronal planes except for what appears to be a Grade I spondylolisthesis at L5-S1 with possible pars deficiencies. XR is limited due to pt body habitus, but on flexion films there is increased SP distance between L5-S1 and there is suspicious lucency through the pars. This is better identified with CT scan of the L spine. It fits with the pts symptoms of Low back and buttock pain. Pelvis films show congruent pelvis with no fracture or dislocation. - Steri-Strips bilateral pars defects at L5 with spondylolysis and spondylolisthesis at L5-S1. There is some minor central stenosis and foraminal stenosis related to this. There is no fracture dislocation otherwise noted. Some of the pars defects on the right-hand side appeared somewhat suspicious for lytic lesion and so MRI would be a better vision of this MRI L spine 02/26/21: L5 bilateral spondylolysis with angulation reduction onthis supine film. There is disc dessication at L4-5 and L5-S1 noted. There is bilateral foraminal stenosis that is moderate at L5-S1. There is mild central stenosis at well. There is mild L4-5 central and foraminal stenosis related. There is segmental kyphosis of L5-S1 noted secondary to the above described. There are no other fractures, dislocation or lesions noted. Global alignment is maintained above L5. Assessment and Plan Assessment: 1. L5 Spondylolysis b/l Pars defect 2. L5-S1 Grade 1 spondylolisthesis with segmental kyphosis 3. Mechanical back pain 4. Bilateral lower extremity radiculopathy R>L Plan: 1.Recommend an L5-S1 MIS TLIF due to instability, mechanical back pain, failed conservative measures. 2. Given a script for an LSO brace, patient instructed to bring this to the hopsital with her the day of the surgery. 3. Directed the patient to d/c the use of Motrin 800mg for 1 week prior to the surgery, patient expressed understanding. Spine Surgery Risk Review Mayra Londono is a 50 y/o white female presenting for evaluation of mechanical back pain with bilateral lower extremity radiculopathy. It was my pleasure to have seen and examined Mayra Londono. In our visit today we have had a chance to go over subjective complaints, physical examination findings and treatments including the natural course history without intervention and various interventional options. The patients imaging demonstrates L5 bilateral spondylolysis with angulation reduction on this supine film. There is disc dessication at L4-5 and L5-S1 noted. There is bilateral foraminal stenosis that is moderate at L5-S1. There is mild central stenosis at well. There is mild L4-5 central and foraminal stenosis related. There is segmental kyphosis of L5-S1 noted secondary to the above described. There are no other fractures, dislocation or lesions noted. Global alignment is maintained above L5. On physical exam, Mayra Londono demonstrates bilateral lower extremity weakness with difficulty bending upwards. I have explained to the patient that as their condition progresses it will cause further neurological deficits and eventual paralysis. Based on the patients imaging, physical exam, and the rapid progression and disabling nature of their symptoms, at this time I recommend surgery in the form or a: L5-S1 microscopic transforaminal lumbar interbody fusion. I discussed the risk and benefits of this procedure at length with Mayra Londono. The patient agreed to considered pursuing the procedure abovementioned. Prior to surgery, she should follow up with her PCP (Cardio, ID, IM etc) for clearance. Questions were invited and answered, and the patient wishes to proceed as outlined below. Currently, I am recommendin.L5-S1 decompression and transforaminal lumbar interbody fusion 2.Follow up with PCP for surgical clearance 3.Review of surgical risks and benefits as well as an educational packet on the proposed surgical procedure. Risks: All surgical procedures come with inherent risks, including those related to positioning, anesthesia, intraoperative findings, and postoperative complications. It is important to understand that surgery does not come with any guarantee of a successful outcome as complications and adverse events are always possible. The patient was given a handout in office today discussing the surgical procedure and risks associated with the intervention, both of which were discussed with the patient. These risks include but are not limited to the following: * Experiencing same, different or even worse symptoms in back, neck, arms, or legs compared to before surgery. Requiring further surgery or other forms of treatment presently or at some time in the future at same or other levels of the intended spine surgery. On an extreme but fortunately relatively rare basis severe complication such as blindness, stroke, heart attack, temporary and/or permanent nerve injury, paralysis, coma, or may occur, sometimes without known explanation. Surgical complications may include but are not limited to risk of infecti on, fluid accumulation in the surgical dissection site, including a seroma or hematoma, that requires additional surgery, wound drainage, bleeding, new numbness or weakness, vision changes/loss, spinal fluid leakage, non-healing and/or infected incision, headaches, difficulty or inability to swallow, hoarseness, hemopneumothorax, pneumothorax, impotence, retrograde ejaculation, vaginal dryness; injury to nerves, spinal cord, blood vessels, lymphatics or other vital organs (i.e., bowel injury, injury to the great vessels); heterotopic bone formation; complications related to the hardware such as screws, rods, cages including misplaced hardware, device failure, instrumentation at the wrong spine level, hardware fracture/breakage, or hardware loosening; vertebral failure of the spinal column above or below the newly placed hardware; retained surgical instrumentations or devices and the need for further surgery. * Medical risks of the planned spine surgery include but are not limited to generalized Infections to the whole body or local areas outside of the surgical site (sepsis), heart attack, bleeding, anaphylaxis, meningitis, seizure, epilepsy, hearing loss, burn deal, laceration of the head or other areas of the body, bruising, hypersensitivity of the skin, bladder over distension; allergic reaction; shoulder injury related to positioning; fat, blood and air clots to other areas of the body like heart, lungs, brain; failure of internal organs such as lungs, kidneys, liver and excessive bleeding. If blood transfusions are necessary, note that transfusions may cause intolerance reactions such as anaphylaxis or other complex reactions. Despite best efforts, the results of spine surgery might not heal in terms of bone, soft tissues such as skin, fascia, ligaments, and joints. Additionally, in order to achieve best possible results, spine surgery may be carried out beyond the initially planned levels and involve decompression, fusion including insertion of hardware at levels other than the original intended area of surgical interest change some portions of the procedure in order to ensure the best possible outcomes. With spine surgery and spinal fusion, there are different off label uses of instrumentation (devices, implants and hardware) as well as biological substances (bone morphogenic proteins, demineralized bone matrix) as well as using extra bone from allograft sources (i.e. cadaver bone) or autograft (iliac crest bone, ribs, or the spine itself). The patient has been given information about these practices and their inherent risks and benefits. Formerly [facility] is an educational center that serves as a training facility for neurosurgical and orthopedic spine residents and fellows. Residents are physicians who are completing their surgical intensive training following medical school. They assist in the operating room with direct supervision of the attending surgeons. Mccoy are surgeons who have completed their training and eligible for board certification. They have opted for an elective year of more specialized training in their field. They assist in the operating room under the supervision of the attending surgeons. Physician assistants are medically trained surgical providers who function in the outpatient, inpatient, and operating room setting under the direct supervision of the attending surgeon. Formerly [facility] has multiple operating rooms with single and overlapping rooms running daily. They currently function under the required guidelines as produced by the [facility] Finance Committee with regards to the overlapping rooms and will continue to comply with changes to this policy as they occur. The requirements include and are complied with as follows: (1) the critical portions of the overlapping rooms will not occur at the same time, (2) the attending physician will be physically present during the critical portions of the procedure and immediately available during the entire case, and (3) a back-up attending is designated should the primary attending not be immediately available. The patient has had a chance to review all the listed information, has been given print outs detailing this information, and has had all his/her questions answered to their satisfaction. It was my pleasure to have seen and examined Mayra Londono. In our visit today we have had a chance to go over my understanding of our patient's current condition, the natural course history without intervention and various interventional options. Questions were invited and answered, and the patient wishes to proceed as outlined above. I have seen and examined the patient for 25 minutes and we have spent more than 50% of the time in repeat and detailed counseling about the patient's condition, its natural course history with out and as much as can be predicted with surgery and re-review of various surgical treatment options. In conclusion, Mayra Londono requested we proceed with the above suggested surgery and are willing to accept risks and limitations of the suggested surgery as nature of the disease process and our best attempts at treatment for the condition. Thank you again for allowing us to be part of your patient's care. Please don't hesitate to contact me if you have any further questions. Signed and authenticated by: [employer] P:\\\\ppart\\\\[id number]\\\\[id number] \\d [facility] [address] [place] [address]
[2021-06-03] MEDS ORDERED: TRANEXAMIC ACID 1,000 MG in SODIUM CHLORIDE 0.9% 100 ML IVPB ONE ×4 (07:00)
[2021-06-03 07:11] LABS: Glucose,Whole Blood 90 mg/dL (75-99)
[2021-06-03] MEDS: LACTATED RINGERS 1,000 ML IV SCH (07:22)
[2021-06-03] MEDS ORDERED: KETAMINE 10 MG/ML 20 ML VIAL ONE (07:25)
[2021-06-03] MEDS ORDERED: SUCCINYLCHOLINE CHLORIDE 100 MG/5 ML SYR IV ONE (07:25)
[2021-06-03] MEDS ORDERED: .fentaNYL (PF) 50 MCG/ML 2 ML AMP ONE (07:25)
[2021-06-03] MEDS ORDERED: HYDROmorphone (PF) 1 MG/ML ONE (07:25)
[2021-06-03] MEDS ORDERED: TRANEXAMIC ACID 1,000 MG/10 ML VIAL ONE (07:25)
[2021-06-03] MEDS ORDERED: SODIUM CHLORIDE 0.9% 100 ML BAG ONE (07:25)
[2021-06-03] MEDS ORDERED: PROPOFOL 10 MG/ML 20 ML VIAL IV ONE (07:25)
[2021-06-03] MEDS ORDERED: .MORPHINE SULFATE (INJ) 10 MG/ML SYRINGE ONE (07:25)
[2021-06-03] MEDS ORDERED: LIDOCAINE 1% INJ 10MG/ML (20 ML MDV) ONE (07:25)
[2021-06-03] MEDS ORDERED: MIDAZOLAM 2 MG/2 ML VIAL ONE (07:25)
[2021-06-03] MEDS ORDERED: THROMBIN (BOVINE) 5,000 UNIT VIAL TOPICAL ONE (08:16)
[2021-06-03] MEDS ORDERED: GELATIN SPONGE,ABSORB (LARGE) 1 EACH SPONGE MISCELLANE ONE (08:16)
[2021-06-03] MEDS ORDERED: BUPIVACAIN-EPI 0.25%-1:200,000 30 ML VIAL SQ ONE (08:16)
[2021-06-03] MEDS ORDERED: ceFAZolin 1,000 MG in SODIUM CHLORIDE 0.9% 1,000 ML IRRIGATION ONE (09:02)
[2021-06-03] MEDS ORDERED: LACTATED RINGERS 1,000 ML IV ONE (10:30)
[2021-06-03] MEDS ORDERED: VANCOMYCIN 1,000 MG VIAL MISCELLANE ONE (11:11)
[2021-06-03 12:01] LABS: Glucose,Whole Blood 131 mg/dL (75-99)
[2021-06-03] MEDS ORDERED: SENNOSIDES-DOCUSATE SODIUM 1 EACH TAB PO PRN (12:12)
[2021-06-03] MEDS ORDERED: MAGNESIUM HYDROXIDE 2,400 MG/10 ML CUP PO PRN (12:12)
[2021-06-03] MEDS ORDERED: ONDANSETRON 4 MG/2 ML VIAL IVP PRN (12:12)
[2021-06-03] MEDS ORDERED: bisacodyL 10 MG SUPP RECTAL PRN (12:12)
[2021-06-03] MEDS ORDERED: CYCLOBENZAPRINE 5 MG TAB PO PRN (12:12)
[2021-06-03] MEDS ORDERED: MAG HYDROX/AL HYDROX/SIMETH 30 ML CUP PO PRN (12:12)
[2021-06-03] MEDS: .fentaNYL (PF) 50 MCG/ML 2 ML AMP IV PRN ×2 (12:51→13:17)
--- NOTE | 2021-06-03 13:01 | P.PN ---
Progress Note - Text Progress Note Date: 06/03/21 Brief Post Op: Surgeon: Amanda Pre op dx; L5 spondylolysis Post op dx: Same Procedure: L5-S1 T lift Anesthesia: GETA EBL: 50 Fluids: 2000 UO: 350 Dispo: Stable to PACU Post op Plan: Post operative noncontrasted CT scan Encourage ambulation IS 10x/hr Teds/SCDs Pain control No brace needed for ambulation
[2021-06-03] MEDS ORDERED: ceFAZolin 3 GM in SODIUM CHLORIDE 0.9% 100 ML IVPB SCH (16:00)
[2021-06-03 16:53] LABS: Glucose,Whole Blood 93 mg/dL (75-99)
[2021-06-03] MEDS: INSULIN ASPART (NovoLOG) 100 UNIT/ML VIAL SQ SCH ×2 (17:23→21:28)
[2021-06-03] MEDS: ACETAMINOPHEN TAB 500 MG TAB PO SCH (18:15)
[2021-06-03 20:17] LABS: Glucose,Whole Blood 131 mg/dL (75-99)
--- NOTE | 2021-06-03 21:04 | CONS ---
CONSULTATION DATE OF SERVICE: 06/03/2021. REASON FOR CONSULTATION: Advice regarding diabetes and other multiple medical issues, requested by Dr. Patel. HISTORY OF PRESENT ILLNESS: This 50-year-old woman with a past medical history of diabetes mellitus, hypertension, hyperlipidemia, history of DJD, rheumatoid arthritis, being followed by Dr. Talia Peters in the outpatient setting, underwent L5-S1 for L5 spondylosis by Dr. Patel. The patient tolerated the procedure well. The blood pressure is slightly at the lower limit of normal at 95 systolic. Otherwise, there is no history of any fever, rigor or chills, no history of headache, loss of consciousness. The patient has some back pain at this time. PAST MEDICAL HISTORY: Diabetes mellitus, hypertension, hyperlipidemia, history of DJD, history of rheumatoid arthritis. HOME MEDICATIONS: Propranolol, Lyrica, Actos, Linzess, Motrin, chloroquine, Colace, vitamin D3, black cohosh, baclofen, Lipitor, vitamin C. Doses are reviewed. ALLERGIES: ERYTHROMYCIN, HYDROMORPHONE, PENICILLIN AND OZEMPIC. FAMILY HISTORY: No history of heart disease or strokes in the family. SOCIAL HISTORY: Previous history of smoking 7 years ago. No history of alcohol intake. REVIEW OF SYSTEMS: ENT: No diminished hearing. No diminished vision. CARDIOVASCULAR SYSTEM: No angina, palpitations. RESPIRATORY SYSTEM: No cough, hemoptysis. GI: No nausea, vomiting, diarrhea. : No dysuria. NERVOUS SYSTEM: No numbness, weakness. ALLERGY/IMMUNOLOGY: No asthma or hay fever. MUSCULOSKELETAL: As mentioned earlier. HEMATOLOGY/ONCOLOGY: No history of anemia. ENDOCRINE: As mentioned earlier. CONSTITUTIONAL: As mentioned earlier. DERMATOLOGY: Negative. RHEUMATOLOGY: Negative. PSYCHIATRY: As mentioned earlier. PHYSICAL EXAMINATION: Patient is alert and oriented x3. Pulse is 89, blood pressure 133/76, respiration 18, temperature 97.5, pulse ox 99% on 2 L. HEENT: Conjunctivae normal. Oral mucosa moist. NECK: No jugular venous distention. No carotid bruit. No lymph node enlargement. CARDIOVASCULAR: S1, S2 muffled. RESPIRATION: Breath sounds diminished at the bases. No rhonchi. No crackles. ABDOMEN: Soft, nontender. No mass palpable. LEGS: No edema. No swelling. NERVOUS SYSTEM: Higher functions as mentioned earlier. Moves all 4 limbs. No focal motor or sensory deficit. LYMPHATICS: No lymph node palpable in neck, axillae or groin. SKIN: No ulcer, rash, bleeding. JOINTS: No active deforming arthropathy. EXAMINATION OF THE BACK: Status post surgery. LABS: Glucose 131, 93. Otherwise, preop labs are reviewed and are within normal limits. ASSESSMENT: 1. Status post L5-S1 surgery for L5 spondylosis. 2. Diabetes mellitus, type 2. 3. Hypertension. 4. Hyperlipidemia. 5. History of degenerative joint disease. 6. History of rheumatoid arthritis. 7. History of migraine. 8. History of lumbar stenosis. 9. History of MRSA. 10.History of section. 11.History of uterine ablation. 12.Remote history of nicotine dependence. 13.Obesity with body mass index 43.5. 14.FULL CODE. RECOMMENDATIONS AND DISCUSSION: In this 50-year-old woman who presented with multiple medical issues, at this time I recommend to continue the current medications, continue the home medications. I would recommend holding the propranolol because of the relatively low blood pressure at this time. Otherwise, continue to monitor. DVT prophylaxis. Incentive spirometry. Will follow the patient closely with you. Patient may be asked to follow with Dr. Talia Peters closely after discharge. Thank you, Dr. Patel, for letting us participate in the care of this patient. MMODL / IJN: [id number] / MTDJohny
[2021-06-03] MEDS: PREGABALIN 75 MG CAP PO SCH (21:28)
[2021-06-03] MEDS: BACLOFEN 10 MG TAB PO SCH (21:28)
[2021-06-03] MEDS: HYDROXYCHLOROQUINE SULFATE 200 MG TAB PO SCH (22:17)
--- NOTE | 2021-06-03 23:04 | CT ---
EXAMINATION TYPE: CT lumbar spine wo con DATE OF EXAM: 06/03/2021 8:55 PM COMPARISON: 06/03/2021 x-ray, MRI lumbar spine 02/26/2021, CT lumbar spine 01/07/2021. HISTORY: post-op lumbar fusion CT DLP: 1579.1 mGycm Automated exposure control for dose reduction was used. TECHNIQUE: Unenhanced CT of the lumbar spine was performed. Bone and soft tissue window settings ar e submitted as well as coronal and sagittal reconstructions. Unenhanced CT of the lumbar spine was pe rformed. Bone and soft tissue window settings are submitted as well as coronal and sagittal reconstr uctions. FINDINGS: Alignment: There are 5 lumbar type vertebral bodies within normal alignment. Osseous structures: No evidence for acute fracture. Interval placement of L5 and S1 fixation hardware with L5-S1 disc cage noted. There is scattered foci of gas along the surgical bed path and skin stap les. L1-L2: Normal disc space height. No disc herniation protrusion or central stenosis. No facet joint arthropathy. No evidence for foraminal encroachment. L2-L3: Normal disc space height. No disc herniation protrusion or central stenosis. No facet joint arthropathy. No evidence for foraminal encroachment. L3-L4: Normal disc space height. No disc herniation protrusion or central stenosis. No facet joint arthropathy. No evidence for foraminal encroachment. L4-L5: Normal disc space height. No disc herniation protrusion or central stenosis. No facet joint arthropathy. No evidence for foraminal encroachment. L5-S1: Disc cage is in place. Evaluation of the neural foramen is limited secondary to streak artifac t. Few scattered foci of gas are seen within the spinal canal consistent with pneumorachis. Other: Nonobstructing right renal calculus. Left adrenal nodule measuring 2.0 cm stable back to at le ast 2009. IMPRESSION: Interval postsurgical changes with L5-S1 fixation hardware in place. Hardware appears intact. Subcuta neous foci of gas along with pneumorachis likely secondary to recent surgery.
[2021-06-04] MEDS: ACETAMINOPHEN TAB 500 MG TAB PO SCH ×5 (00:21→23:24)
[2021-06-04] MEDS: LACTATED RINGERS 1,000 ML IV SCH (01:33)
[2021-06-04] MEDS: MORPHINE SULFATE 2 MG/ML SYRINGE IVP PRN ×3 (05:45→23:25)
[2021-06-04 05:56] LABS: Basophils % (A) 1 %; Eosinophils % (A) 1 %; HCT 37.4 % (34.0-46.0); HGB 12.2 gm/dL (11.4-16.0); Lymphocytes # (A) 1.7 k/uL (1.0-4.8); Lymphocytes % (A) 21 %; MCH 29.4 pg (25.0-35.0); MCHC 32.5 g/dL (31.0-37.0); MCV 90.4 fL (80.0-100.0); Mean Platelet Volume 9.1; Monocytes # (A) 0.6 k/uL (0-1.0); Monocytes % (A) 7 %; Neutrophils # (A) 5.8 k/uL (1.3-7.7); Neutrophils % (A) 70 %; Platelet Count 211 k/uL (150-450); RBC 4.14 m/uL (3.80-5.40); RDW 14.2 % (11.5-15.5); WBC 8.3 k/uL (3.8-10.6)
[2021-06-04 07:08] LABS: Glucose,Whole Blood 117 mg/dL (75-99)
--- NOTE | 2021-06-04 08:33 | P.PN ---
Subjective Progress Note Date: 06/04/21 Pt s/e laying in bed. Has not been up today yet. Went to bathroom last night. Denies any f/c/sob/cp. Denies any perinal numbness/tingling. States soreness in back but feels more stable. States some minor RLE pain that is better. Denies any other sx at this time. Objective - Vital Signs Vital signs: Vital Signs Temp 98.2 F 06/04/21 04:55 Pulse 70 06/04/21 04:55 Resp 16 06/04/21 04:55 BP 117/75 06/04/21 04:55 Pulse Ox 98 06/04/21 04:55 Intake & Output 06/03/21 06/04/21 06/04/21 18:59 06:59 18:59 Intake Total 1701 290 Output Total 875 1750 Balance 826 -1460 Intake: IV 1701 Intake, IV Titration 290 Amount Lactated Ringers 1,000 ml 240 @ 20 mls/hr IV .Q24H [facility] Rx#:[id number] ceFAZolin 2 gm In Sodium 50 Chloride 0.9% 50 ml @ 100 mls/hr IVPB Q8HR [facility] Rx# :[id number] Output: Urine 825 1750 Estimated Blood Loss 50 Other: Voiding Method Indwelling Catheter - Exam Patient is alert and oriented 3 appears well-nourished well-hydrated is in no acute distress. They does not appear septic. Milt TTP about incisions L spine. There is no edema or ballottement sign. Lower extremities with 5 out of 5 strength in all major muscle groups Upper extremities show 5/5 strength in all major muscle groups. There is FROM that is painless of the b/l UE and LE in all major joints. They are intact to light touch sensation in L2 to S1 nerve distribution. Patient has palpable dorsalis pedis was posterior tibial pulses. Compartments are soft and compressible. Patient shows a negative Homans, Hernandez's, negative Babinski's negative clonus bilaterally. negative straight leg raise bilaterally. No tensioning signs. Cranial nerves II through XII are grossly intact. Overall alignment is well-maintained in the sagittal coronal planes. Dressings mild saturation, will change before DC. Mild bruising. No other issues noted. - Constitutional General appearance: Present: morbidly obese - Labs CBC & Chem 7: 06/04/21 05:26 Labs: Abnormal Lab Results - Last 24 Hours (Table) 06/03/21 06/03/21 06/04/21 Range/Units 11:59 20:16 07:07 POC Glucose (mg/dL) 131 H 131 H 117 H (75-99) mg/dL Assessment and Plan Assessment: POD1 L5-S1 TLIF 1. L5 Spondylolysis b/l Pars defect 2. L5-S1 Grade 1 spondylolisthesis with segmental kyphosis 3. Mechanical back pain 4. Bilateral lower extremity radiculopathy R>L Plan: -Appreciate recruitment consultant and team management. -Activity: Ambulate QID, OOB all meals, up and about, limit lifting bending t wisting to less than 5 lbs. Use walker or cane if needed for stability. -Daily PT/OT, increase ambulation strength and balance. -[Brace when up and about, not needed in bed or chair] -Pain control: [Adequate at this time] -Meds: [reviewed] -GI ppx: senna, Miralax -DC kirk when up and about, bedside commode if needed -DVT PPX: [OK to restart Heparin tonight] -Hygiene: Shower today. Maintain dressing clean and dry. Meticulous cleaning after BMs away from incision site -Encourage IS 10x/hr -Dispo: Plan for home today
[2021-06-04] MEDS: INSULIN ASPART (NovoLOG) 100 UNIT/ML VIAL SQ SCH ×4 (08:52→21:39)
[2021-06-04] MEDS: HYDROXYCHLOROQUINE SULFATE 200 MG TAB PO SCH ×2 (09:03→21:30)
[2021-06-04] MEDS: PREGABALIN 75 MG CAP PO SCH ×3 (09:03→21:30)
[2021-06-04] MEDS: ASCORBIC ACID 500 MG TAB PO SCH (09:04)
[2021-06-04] MEDS: DOCUSATE 100 MG CAP PO SCH (09:04)
[2021-06-04] MEDS: BACLOFEN 10 MG TAB PO SCH ×3 (09:04→21:30)
[2021-06-04] MEDS: ATORVASTATIN 10 MG TAB PO SCH (09:04)
[2021-06-04] MEDS: CHOLECALCIFEROL 25 MCG (1000 IU) TABLET PO SCH (09:05)
[2021-06-04 11:24] LABS: African American GFR (CKD) 132.6 (60.0-200.0); Anion Gap 10.8 mmol/L (10.00-18.00); BUN/Creat Ratio 19.8 Ratio (12.00-20.00); Blood Urea Nitrogen 9.9 mg/dL (9.0-27.0); Calcium 8.9 mg/dL (8.7-10.3); Carbon Dioxide 24.2 mmol/L (20.0-27.5); Non-African American GFR(CKD) 114.4 (60.0-200.0); Potassium 3.8 mmol/L (3.5-5.5)
[2021-06-04 12:58] LABS: Glucose,Whole Blood 157 mg/dL (75-99)
--- NOTE | 2021-06-04 13:11 | FL ---
Fluoroscopy HISTORY: Posterior fusion 42 seconds fluoroscopy time supplied to the referring clinician. 5 intraoperative C-arm images docum ent the procedure. See dictated report from orthopedic surgery.
[2021-06-04] MEDS: EMPAGLIFLOZIN PO SCH (15:09)
[2021-06-04] MEDS: METFORMIN HCL PO SCH (15:09)
[2021-06-04] MEDS: PATIENT'S OWN (Linaclotide [Linzess] 145 MCG Capsule) PO SCH (15:09)
[2021-06-04 17:07] LABS: Glucose,Whole Blood 154 mg/dL (75-99)
--- NOTE | 2021-06-04 17:41 | PN ---
PROGRESS NOTE DATE OF SERVICE: 06/04/2021 This 50-year-old woman who was admitted after lumbar surgery is improving significantly. No chest pain. No palpitations. No fever. On exam, alert and oriented x3. The pulse is 78, blood pressure 108/69, respiration 16, temperature 98.6, pulse ox 97% on room air. HEENT: Conjunctivae normal. NECK: No jugular venous distention. CARDIOVASCULAR: S1, S2 muffled. RESPIRATION: Breath sounds diminished at the bases. No rhonchi. No crackles. ABDOMEN: Soft, nontender. LEGS: No edema. No swelling. NERVOUS SYSTEM: No focal deficit. EXAMINATION OF THE BACK: Status post surgery. LABS: Accu-Cheks 157, 154. ASSESSMENT: 1. Status post L5-S1 surgery for L5 spondylosis. 2. Diabetes mellitus, type 2. 3. Hypertension. 4. Hyperlipidemia. 5. History of degenerative joint disease. 6. History of rheumatoid arthritis. 7. History of migraines. 8. History of lumbar stenosis. 9. History of MRSA. 10.History of section. 11.History of uterine ablation. 12.Remote history of nicotine dependence. 13.Obesity with body mass index of 40.5. 14.FULL CODE. RECOMMENDATIONS AND DISCUSSION: I recommend to continue current medications, continue with the monitoring, symptomatic treatment. Continue with the home medications. Accu-Cheks before meals and at bedtime and NovoLog scale and consistent-carb diet. Otherwise, resume the home medications. Recommend close followup with primary physician in the outpatient setting. Further recommendations to follow. MMODL / IJN: [id number] /
[2021-06-04 20:58] LABS: Glucose,Whole Blood 174 mg/dL (75-99)
[2021-06-05] MEDS: LACTATED RINGERS 1,000 ML IV SCH (01:16)
[2021-06-05 04:09] VITALS: BP 110/68; PULSE 82; RESP 18; TEMP 98.9
[2021-06-05] MEDS: ACETAMINOPHEN TAB 500 MG TAB PO SCH (05:01)
[2021-06-05] MEDS: MORPHINE SULFATE 2 MG/ML SYRINGE IVP PRN (05:06)
--- NOTE | 2021-06-05 07:18 | P.OP ---
Date of Procedure: 06/03/21 Preoperative Diagnosis: 1. L5 Spondylolysis b/l Pars defect 2. L5-S1 Grade 1 spondylolisthesis with segmental kyphosis 3. Mechanical back pain 4. Bilateral lower extremity radiculopathy R>L Postoperative Diagnosis: 1. L5 Spondylolysis b/l Pars defect 2. L5-S1 Grade 1 spondylolisthesis with segmental kyphosis 3. Mechanical back pain 4. Bilateral lower extremity radiculopathy R>L Procedure(s) Performed: 1. L5-S1 transforaminal lumbar interbody fusion (58455) 2. L5-S1 extradural laminectomy for decompression of spinal elements and nerve roots (40078) 3. Use of Gabriela 3-D navigation for screw placement (44817) 4. Use of intraoperative microscope (82979) 5. Use of intraoperative neuro monitoring (45490) 6. Interpretation of intraoperative flouroscopy <1 hr (91766) Implants: Gabriela screws Amplify cage Anesthesia: ONI Surgeon: Victor Hugo Patel Keyboard Action Assembler #1: Johnny Holloway (Was present and necessary for the entire case) Pathology: none sent Condition: stable Disposition: PACU Indications for Procedure: This is a pleasant 50-year-old female who presented to the office and has been treated through the orthopedic spine office for some time now for her low back pain. The patient has had ongoing low back pain for several years and it has exacerbated itself several times this last time fairly severely to the point where the patient was having difficulty with ambulation and now starting with radicular symptoms down both legs. She has gone through multiple different conservative management techniques including physical therapy home exercise chiropractics medications prescription and [id number] as well as injections and none of these have helped her symptoms. She was found to have bilateral L5 pars defects and spondylolysis. She found to have mobility on flexion-extension films. We discussed at length the different treatment options for her and at this point she has elected to undergo surgical fixation of this pathology. We discussed the risks and benefits of surgery at length as outlined in the risk review. She is ready willing and able to proceed with the procedure. Description of Procedure: The patient was seen and examined in the preoperative area. All preoperative protocols were followed. Informed consent was obtained risks and benefits of the procedure were discussed at length. Risks including bleeding infection damage to the surrounding tissue and risk of reoperation were discussed with the patient. Risk of anesthesia up to and including was a discussed with the patient. These are outlined in the risk review. They were willing to accept these risks and all of the risks of surgery. The patient was given a weight- based dose of antibiotics in the form of 2 g Ancef. The patient was seen and evaluated by the anesthesia team who deemed them fit for surgery. The site was marked, the patient was willing to proceed with the procedure. The patient was transferred to the operative suite by the Department of anesthesia. They were then drifted off to sleep by the department anesthesia and GETA was performed. The patient tolerated this well. Richter catheter was placed by nursing staff, atraumatically. Once confirmation of lines and v entilation the patient was transferred to a prone Melo table very carefully. All bony prominences including wrists, elbows, axilla, chest, hips, and thighs, and feet were padded very well. Special attention was paid to the genitalia and these were padded accordingly. SCDs were placed on bilateral lower extremities and were connected. Arms were well padded and placed on arm boards up and out in the 90/90 position. Once in position, again we confirmed good ventilation capabilities and that lines were running appropriately. The patient's lumbar spine was then exposed. 1010s were placed outlining the incision site. Standard alcohol was used to clean the incision site and allowed to dry. C-arm was used to biomark the patient and confirm level for incision which was marked with a skin marker. Operative briefing was performed with all teams and everyone in agreement to proceed. The patient was then prepped and draped in a normal sterile fashion. Timeout was then performed and all parties were in agreement with the procedure to be performed. Over the previously bio marked area on the right-hand side we made a paralumbar incision. The initial set of dilators was selected and placed under fluoroscopic guidance at the L5-S1 disc space over the facet joints. Chondral dilation was then taken up to a 26 mm tube. This tube was then placed under fluoroscopic guidance in AP and lateral and secured into position with a bed clamp. Once in position AP lateral fluoroscopy confirmed good positioning of the tube the intraoperative microscope was brought in. We then perform myom ectomy over the facet joints. Facet joint was identified high-speed bur was used to remove the eye AP of L5 and the SAP of S1 for a complete pedicle to pedicle decompression. We then performed an extradural decompression of the pars lamina foramen and central canal from the right-hand side. This is done using high-speed bur as well as Kerrison rongeurs. The nerve root was extremely scarred and in this area due to the pars defects in the area the scar tissue was cleaned along with the ligamentum flavum. Once decompression had been completed we carefully access the disc space while protecting the nerve roots with a nerve groove protector. We then entered the disc space using first a osteotome quarter inch followed by sequential same shanon. We took care to perform a near complete discectomy of the area. The endplates were scraped of any cartilage using a there are claw sequential shaving allowed us to get our size for the Amplify cage we then impacted a trial cage to size closer we took AP and lateral fluoroscopy throughout this process to ensure that we were midline as well as anterior. Once we secured our position and the discectomy was complete we irrigated this disc space out to remove any further fragments. We then placed anterior in the disc space a thorough cell DBM bullet. The cage was then selected and impacted into place under AP and lateral fluoroscopy. Once in position the cage was then expanded under AP and lateral fluoroscopy and it expanded well and in correct positioning. We were then able to back fill the cage with more autograft and DBM. We took final AP and lateral fluoroscopic images of the cage which ensured good placement expansion as well as fill. Neural monitoring showed no changes during cage placement no EMG firing or spiking. We then carefully performed hemostasis in the area. FloSeal as well as bipolar electrocautery we then carefully removed the tubular retractor system. We then turned our attention to screw placement. BrightSun 3-D navigation was used for this. Spine mask was placed and an intraoperative 3-D scan was taken. We then used a navigated Jamshidi to place wires within the L5 and S1 pedicles respectively and bilaterally. Once these were in place and confirmed under AP and lateral fluoroscopy lateral fluoroscopy was used and the screws were placed over the wires. Once screws were in position and wires removed we tested all screws and all screws tested above 20 mA. We then sized and placed rods bilaterally these were subfascial and we then placed set screws and final tightened them into position. We roughened the bone edges around the facets bilaterally as well as what was left of the facets on the right-hand side. An autograft placed in these areas. We then removed the tabs on the screws and took final images in AP and lateral fluoroscopy showing good placement of screws good placement of cage and good reduction. The wounds were then copiously irrigated with normal sterile saline. Fascial layers were closed with #1 Vicryl deep subcu closed with 0 Vicryl superficial subcu closed with 2-0 Vicryl and skin closed skin valeriano. The wounds were then cleaned and dressed sterilely with Opteform dressings. The patient was transferred back to their hospital bed atraumatically. . Patient was then awakened and extubated by the department of anesthesia having tolerated the procedure very well with no complications. They were transferred to the postoperative care unit in stable condition.
[2021-06-05 07:35] LABS: Glucose,Whole Blood 127 mg/dL (75-99)
[2021-06-05] MEDS: INSULIN ASPART (NovoLOG) 100 UNIT/ML VIAL SQ SCH (07:43)
[2021-06-05] MEDS: ASCORBIC ACID 500 MG TAB PO SCH (08:18)
[2021-06-05] MEDS: BACLOFEN 10 MG TAB PO SCH (08:18)
[2021-06-05] MEDS: CHOLECALCIFEROL 25 MCG (1000 IU) TABLET PO SCH (08:18)
[2021-06-05] MEDS: DOCUSATE 100 MG CAP PO SCH (08:18)
[2021-06-05] MEDS: PREGABALIN 75 MG CAP PO SCH (08:18)
[2021-06-05] MEDS: ATORVASTATIN 10 MG TAB PO SCH (08:18)
[2021-06-05] MEDS: EMPAGLIFLOZIN PO SCH (08:19)
[2021-06-05] MEDS: METFORMIN HCL PO SCH (08:19)
[2021-06-05] MEDS: HYDROXYCHLOROQUINE SULFATE 200 MG TAB PO SCH (08:21)
[2021-06-05] MEDS: PATIENT'S OWN (Linaclotide [Linzess] 145 MCG Capsule) PO SCH (08:21)
--- NOTE | 2021-06-05 09:06 | P.PN ---
Subjective Progress Note Date: 06/05/21 Pt s/e today. Doing better. Up in chair. Has been up with PT and walking using a walker. C/o of pain in back but improving and controlled with meds. Denies any weakness/tinglin/numbness that is new. States +flatus and urination. Denies any other bowel bladder issues states no f/c/sob/cp at this time. Objective - Vital Signs Vital signs: Vital Signs Temp 98.9 F 06/05/21 04:08 Pulse 82 06/05/21 04:08 Resp 18 06/05/21 04:08 BP 110/68 06/05/21 04:08 Pulse Ox 95 06/05/21 04:08 Intake & Output 06/04/21 06/05/21 06/05/21 18:59 06:59 18:59 Output Total 230 Balance -230 Output: Urine 230 Other: Voiding Method Indwelling Catheter Toilet # Voids 3 1 # Bowel Movements 1 - Exam Exam repeated today. No significant changes from below. Dressings and incisions are CDI no EEE. Mild TTP around incision at this time. No other issu es noted. Patient is alert and oriented 3 appears well-nourished well-hydrated is in no acute distress. They does not appear septic. Milt TTP about incisions L spine. There is no edema or ballottement sign. Lower extremities with 5 out of 5 strength in all major muscle groups Upper extremities show 5/5 strength in all major muscle groups. There is FROM that is painless of the b/l UE and LE in all major joints. They are intact to light touch sensation in L2 to S1 nerve distribution. Patient has palpable dorsalis pedis was posterior tibial pulses. Compartments are soft and compressible. Patient shows a negative Homans, Hernandez's, negative Babinski's negative clonus bilaterally. negative straight leg raise bilaterally. No tensioning signs. Cranial nerves II through XII are grossly intact. Overall alignment is well-maintained in the sagittal coronal planes. Dressings mild saturation, will change before DC. Mild bruising. No other issues noted. - Labs CBC & Chem 7: 06/04/21 05:26 06/04/21 05:26 Labs: Abnormal Lab Results - Last 24 Hours (Table) 12/15/21 12/15/21 12/15/21 Range/Units 05:26 12:56 17:05 Creatinine 0.5 L (0.6-1.5) mg/dL Glucose 112 H (70-110) mg/dL POC Glucose (mg/dL) 157 H 154 H (75-99) mg/dL 06/04/21 06/05/21 Range/Units 20:52 07:33 Creatinine (0.6-1.5) mg/dL Glucose (70-110) mg/dL POC Glucose (mg/dL) 174 H 127 H (75-99) mg/dL Assessment and Plan Assessment: POD2 L5-S1 TLIF 1. L5 Spondylolysis b/l Pars defect 2. L5-S1 Grade 1 spondylolisthesis with segmental kyphosis 3. Mechanical back pain 4. Bilateral lower extremity radiculopathy R>L Plan: -Appreciate investment consultant and team management. -Activity: Ambulate QID, OOB all meals, up and about, limit lifting bending twisting to less than 5 lbs. Use walker or cane if needed for stability. -Daily PT/OT, increase ambulation strength and balance. -[Brace when up and about, not needed in bed or chair] -Pain control: [Adequate at this time] -Meds: [reviewed] -GI ppx: senna, Miralax -DC kirk when up and about, bedside commode if needed -DVT PPX: [OK to restart Heparin tonight] -Hygiene: Shower today. Maintain dressing clean and dry. Meticulous cleaning after BMs away from incision site -Encourage IS 10x/hr -Dispo: Plan for home today
--- NOTE | 2021-06-05 10:08 | P.DS ---
Providers Date of admission: 06/05/21 08:24 Expected date of discharge: 06/05/21 Attending physician: Victor Hugo Patel DO Consults: 06/03/21 12:18 Consult Physician Routine Consulting Provider: Lizz Barry Consult Reason/Comments: Medical Management Do you want consulting provider notified?: Yes Primary care physician: Talia Peters [facility] Course: Date of admission: 06/03/2021 Date of discharge: 06/05/2021 Admission diagnosis: Status post minimally invasive L5-S1 transforaminal lumbar interbody fusion Discharge diagnosis: Same Attending physician: Dr. Patel Surgical procedures: Minimally invasive L5-S1 transforaminal lumbar interbody fusion Brief history: Patient is a 50-year-old female with a history of low back pain, bilateral lower extremity radiculopathy, L5 spondylolysis with L5-S1 spondylolisthesis. At this point patient has failed conservative treatment measures and has opted to proceed with a elective minimally invasive L5-S1 transforaminal lumbar interbody few. Hospital course: Details of patient's surgery can be found in operative report. Patient tolerated the procedure well and was subsequently transported to orthopedic floor. Patient's orthopeidc and medical care was provided daily. Patient had daily laboratory tests performed for evaluation of overall blood counts. Patient had daily physical therapy to include strengthening range of motion as well as education with walker ambulation. Patient was noted to have a relatively uneventful postoperative course. Patient reported satisfactory pain control with oral pain medications by postoperative day 0. Patient showed satisfactory progress with physical therapy. Patient moved steadily through the program and had no difficulty meeting the goals by postoperative day 2. Given patient's otherwise satisfactory course and having met physical therapy goals, plan is to discharge patient [home] on postoperative day 2. Discharge condition/disposition: Patient will be discharged home in stable condition. Discharge medications: Instructions are given on resumption of patient's normal daily medications per primary care recommendation, in addition patient will be prescribed Denton 10 mg/325 mg, Duricef 500mg, Lyrica 150mg. Spine Discharge and Recovery Instructions Date of Surgery: 06/03/2021 Diagnosis: L5 spondylolysis Procedure: L5-S1 T lift Medications: See list All medication refills should be obtained through your primary care doctor or [facility] spine surgeon. Please discuss prescription refills at your follow up appointment. Do not call the hospital for medication refills. Dressing: Leave your dressing in place for a total of 3 days post operatively. Then you may remove your dressing and leave open to air. Keep the area clean and if not able to keep area clean, then cover with sterile gauze and tape. Showering: You may shower 3 days after your procedure allowing soap and water to run over incision. Do not scrub. Do not soak. Blot dry. Follow up: Please confirm a follow up appointment with your surgeon 2 weeks post operatively. Please make an appointment to follow up with your PCP in 1-2 weeks after surgery for evaluation 3 phase, 3-week plan POST OP WEEKS 1-3 1. Lifting/carrying/pushing/pulling limited to less than 5 pounds. 2. Do not sit for longer than 15 minutes at one time. Get up and walk around. Prolonged sitting is NOT advised. If you lay down, see if you can tolerate laying down on you front (belly side) 3. Walk for periods of 15 minutes = 1 mile but no longer; do it multiple times times each day. 4.Ice your low back after activity. POST OP WEEKS 3-6 1. Lifting limited to less than 20 pounds. 2. Do not sit for longer than 30 minutes at a time. Frequently change positions. Use a sit-to stand workstation or take frequent breaks from sitting if you have returned to work. 3. Walk for 30 minutes each day. If possible, do these three or more times a day POST OP WEEKS 6+ At your 6-week appointment we will give you a physical therapy referral to focus on a core stabilization and strengthening program. You should also work on leg & buttock strengthening, hamstring & quadriceps stretching, and continue a low impact aerobic activity program such as swimming, walking, or riding a stationary bicycle. During the initial 6 weeks after your surgery, you are at the highest risk of re-injuring your spine. You should generally avoid BLTs (bending, lifting and twisting combination motions) and follow the above guidelines to reduce the chance of reinjury. You can anticipate post op appointments in our office at approximately 3 weeks and 6 weeks after your surgery. INCISION CARE: If your incision is not draining you do NOT need to cover it with a dressing. Keep your incision clean, dry and intact. In most cases, we apply skin glue, valeriano or sutures to the incision at the time of surgery. This will be like a crust or have the appearance of a scab and will fall off in time on its own. The stitches or valeriano need to be removed at 3 weeks post op appointment. You may begin to shower 3 days after surgery (this allows the glue to pino well). However, please avoid scrubbing the incision site or peeling off any of the skin glue. This will ensure optimal healing of your incision. Also, during this time avoid soaking the incision area in water - this includes swimming pools, hot tubs or baths. No ointments, lotions or oils on the incision until your surgeon allows. Leave valeriano, sutures or glue in place. Neurological dysfunction that comes on suddenly can also be a sign of a stroke. Below some common symptoms of a stroke are listed: B - balance difficulty such as sudden onset walking or leaning to one side - NEW E - eye problem such as sudden double vision or trouble seeing on one side - NEW F - Facial weakness or numbness on one side - NEW A - Arm or leg weakness or numbness on one side - NEW S - Slurred speech or difficulty with word finding - NEW T - Time is BRAIN! Call 911 as soon as you recognize these symptoms Diet: Consume a regular diet rich in vegetables and lean protein such as chicken or fish. You should consume in a ratio of approximately 20% fats|40% carbohydrates|40%protein. Vegetables, sweet potatoes, brown rice or quinoa are examples of good carbohydrates. Chips, white bread, cookies and sweets/sugar are examples of bad carbohydrates. Limit your bad carbs, go wild with good carbs. "Life's Simple 7" Guidelines as per [place] [employer] These will help you reclaim your life after surgery and mailing machine helper in your recovery, keeping in mind your restrictions. (1) Get Active. Physical activity can help people lose weight, control high blood pressure and cholesterol, feel emotionally better, and sleep better. (2) Control Cholesterol. Avoid a diet high in saturated fat, trans fat, & cholesterol. Limit whole milk & cream, ice cream, butter, egg yolks, processed meats (like sausage and hot dogs), and fatty meats. Choose healthy foods that are low in saturated fat, trans fat and cholesterol which include: Fruits and vegetables, fiber rich grain products (like whole grain pasta and brown rice), lean meat such as chicken, fish, nuts, seeds, and legumes. (3) Eat Better. Eat small portions. Shop at the grocery with a list and do not stray from it. Tips for a healthy diet include: Limit sodium intake to less than 1500mg daily, avoid prepackaged, processed, and fast foods, choose a diet rich in fruits, vegetables, and whole grain, high fiber foods, and limit saturated & cholesterol in your diet. (4) Manage Blood Pressure. If you have high blood pressure, you should have a cuff at home so that you can check your blood pressure regularly. Be sure you have a good cuff. An arm one is generally better than a wrist one. Bring the cuff to a doctor's appointment to validate that the measurements that your cuff are taking are accurate. Take your blood pressure twice daily when you are sitting down and relaxing. Record the numbers in a log and bring this log with you to your doctors' appointments. (5) Lose Weight if your BMI is above 25. A healthy BMI is between 19-25. To calculate Your BMI, you may use a Standard BMI Calculator on the NIH BMI website: <www.nhlbi.nih.gov/guidelines/obesity/BMI/bmicalc.htm>. Weigh oneself daily. If you are overweight, set a goal to lose weight. A pound a week loss if needed is a good target. (6) Reduce Blood Sugar. Limit foods and liquids with "added sugars." (Added sugars include sucrose, fructose, glucose, maltose, dextrose, high fructose corn syrup, corn syrup, concentrated fruit juice and honey). (7) Stop Smoking. If you smoke, quitting smoking is one of the best things that you can do for your health. Smoking increases your risk of heart attack, stroke, and peripheral vascular disease, which is a build-up of plaque in your arteries. Please discard all the cigarettes and lighters in your house. Have a plan for what you will do when you have the urge to smoke. Direct and second- hand smoke shortens your life as well as the lives of your family, friends and others around you. For your health and the health of those around you, please consider quitting! Proper Bending Body Mechanics: Maintain a wide stance with one foot slightly in front of the other. Keep your back straight. Bend utilizing the strength in your hips and knees. Do not bend at the waist. Maintain the lifted object at your waist-level close to your body. Avoid lifting weight that causes immediately pain or pain anywhere in the body afterwards. Smoking/Nicotine If there was ever one thing that you could do to increase your overall health, decrease your risk of cardiovascular problems by about 39% the second you make the choice, it is to STOP SMOKING. Your body's most instant gratification is the second you stop smoking. We have all heard the studies, read the articles but it is true, smoking is extremely bad for your overall health, and moreover it is detrimental to your bone health. Nicotine, IN ANY FORM, kills bone cells, prevents your body from healing fractures, and significantly prolongs healing after surgery. In spine surgery specifically, it increases your risk of not healing your bones to create a fusion and increases your risk of having a revision surgery due to this up to 60%. I know it is hard. I know it feels impossible. But there are ways. Take control of your life. We are here to help you through it. And when you are ready, ask us and we can direct you to help if you desire. Use the START Plan to Quit Smoking (please visit the Helpguide.org website listed below for more information): S = Set a quit date. Choose a date within the next 2 weeks, so you have enough time to prepare without losing your motivation to quit. If you mainly smoke at work, quit on the weekend, so you have a few days to adjust to the change. T = Tell family, friends, and co-workers that you plan to quit. Let your friends and family in on your plan to quit smoking and tell them you need their support and encouragement to stop. Look for a quit brandon who wants to stop smoking as well. You can help each other get through the rough times. A = Anticipate and plan for the challenges you'll face while quitting. Most people who begin smoking again do so within the first 3 months. You can help yourself make it through by preparing ahead for common challenges, such as nicotine withdrawal and cigarette cravings. R = Remove cigarettes and other tobacco products from your home, car, and work. Throw away all your cigarettes (no emergency pack!), lighters, ashtrays, and matches. Wash your clothes and freshen up anything that smells like smoke. Shampoo your car, clean your drapes and carpet, and steam your furniture. T = Talk to your doctor about getting help to quit. Your doctor can prescribe medication to help with withdrawal and suggest other alternatives. If you can't see a doctor, you can get many products over the counter at your local pharmacy or grocery store, including the nicotine patch, nicotine lozenges, and nicotine gum. Resources for Quitting Smoking: <https://www.[place].gov/documents/[facility]/Quit_Tobacco_Resources_for_patients_313 480_7.pdf> Supplementation: Take recommended dosages of Vitamin D and Calcium to help fortify your bones and help them to heal. See your health maintenance packet for dosages and recommended levels. DVT/VTE prophylaxis: You will be given compression stockings from the hospital. Wear these daily for the first two weeks after surgery. You may take them off at night. You may be prescribed a medication to help thin your blood. Take this as directed. If you are not prescribed this medication, early and frequent ambulation has been shown to be the best prophylaxis to deep vein thrombosis and sequelae related to this event. Procedures: Minimally invasive 5-S1 transforaminal lumbar interbody fusion Patient Condition at Discharge: Good Plan - Discharge Summary Discharge Rx Participant: Yes New Discharge Prescriptions: New Pregabalin [Lyrica] 150 mg PO TID #90 cap cefaDROXiL [Duricef] 500 mg PO Q12HR 5 Days #10 cap HYDROcodone/APAP 10-325MG [Denton 10-325] 1 tab PO Q4HR PRN #56 tab PRN Reason: Pain No Action Liraglutide [Victoza 2-Brennan] 1.8 mg SQ DAILY Ascorbic Acid [Vitamin C] 500 mg PO DAILY Pregabalin [Lyrica] 150 mg PO TID Ibuprofen [Motrin] 800 mg PO Q8H Linaclotide [Linzess] 145 mcg PO DAILY Hydroxychloroquine Sulfate [Plaquenil] 200 mg PO BID Empagliflozin/Metformin HCl [Synjardy 12.5-500 mg Tablet] 1 each PO DAILY Black Cohosh 540 mg PO DAILY Docusate [Colace] 100 mg PO DAILY Cholecalciferol [Vitamin D3 (25 Mcg = 1000 Iu)] 25 mcg PO DAILY Baclofen [Lioresal] 20 mg PO TID Atorvastatin [Lipitor] 10 mg PO DAILY Propranolol HCl 60 mg PO DAILY Discharge Medication List Liraglutide [Victoza 2-Brennan] 1.8 mg SQ DAILY 07/10/18 [History] Ascorbic Acid [Vitamin C] 500 mg PO DAILY 03/11/21 [History] Atorvastatin [Lipitor] 10 mg PO DAILY 03/11/21 [History] Baclofen [Lioresal] 20 mg PO TID 03/11/21 [History] Black Cohosh 540 mg PO DAILY 03/11/21 [History] Cholecalciferol [Vitamin D3 (25 Mcg = 1000 Iu)] 25 mcg PO DAILY 03/11/21 [History] Docusate [Colace] 100 mg PO DAILY 03/11/21 [History] Empagliflozin/Metformin HCl [Synjardy 12.5-500 mg Tablet] 1 each PO DAILY 03/11/21 [History] Hydroxychloroquine Sulfate [Plaquenil] 200 mg PO BID 03/11/21 [History] Ibuprofen [Motrin] 800 mg PO Q8H 03/11/21 [History] Linaclotide [Linzess] 145 mcg PO DAILY 03/11/21 [History] Pregabalin [Lyrica] 150 mg PO TID 03/11/21 [History] Propranolol HCl 60 mg PO DAILY 03/11/21 [History] HYDROcodone/APAP 10-325MG [Denton 10-325] 1 tab PO Q4HR PRN #56 tab 06/05/21 [Rx] Pregabalin [Lyrica] 150 mg PO TID #90 cap 06/05/21 [Rx] cefaDROXiL [Duricef] 500 mg PO Q12HR 5 Days #10 cap 06/05/21 [Rx] Follow up Appointment(s)/Referral(s): [facility] [NON-STAFF] - 1 Week Talia Peters MD [Primary Care Provider] - 1 Week Victor Hugo Patel DO [Doctor of Osteopathic Medicine] - 2 Weeks Activity/Diet/Wound Care/Special Instructions: Spine Discharge and Recovery Instructions Date of Surgery: 06/03/2021 Diagnosis: L5 spondylolysis Procedure: L5-S1 T lift Medications: See list All medication refills should be obtained through your primary care doctor or your clinic spine surgeon. Please discuss prescription refills at your follow up appointment. Do not call the hospital for medication refills. Dressing: Leave your dressing in place for a total of 3 days post operatively. Then you may remove your dressing and leave open to air. Keep the area clean and if not able to keep area clean, then cover with sterile gauze and tape. Showering: You may shower 3 days after your procedure allowing soap and water to run over incision. Do not scrub. Do not soak. Blot dry. Follow up: Please confirm a follow up appointment with your surgeon 2 weeks post operatively. Please make an appointment to follow up with your PCP in 1-2 weeks after surgery for evaluation 3 phase, 3-week plan POST OP WEEKS 1-3 1. Lifting/carrying/pushing/pulling limited to less than 5 pounds. 2. Do not sit for longer than 15 minutes at one time. Get up and walk around. Prolonged sitting is NOT advised. If you lay down, see if you can tolerate laying down on you front (belly side) 3. Walk for periods of 15 minutes = 1 mile but no longer; do it multiple times times each day. 4.Ice your low back after activity. POST OP WEEKS 3-6 1. Lifting limited to less than 20 pounds. 2. Do not sit for longer than 30 minutes at a time. Frequently change positions. Use a sit-to stand workstation or take frequent breaks from sitting if you have returned to work. 3. Walk for 30 minutes each day. If possible, do these three or more times a day POST OP WEEKS 6+ At your 6-week appointment we will give you a physical therapy referral to focus on a core stabilization and strengthening program. You should also work on leg & buttock strengthening, hamstring & quadriceps stretching, and continue a low impact aerobic activity program such as swimming, walking, or riding a stationary bicycle. During the initial 6 weeks after your surgery, you are at the highest risk of re-injuring your spine. You should generally avoid BLTs (bending, lifting and twisting combination motions) and follow the above guidelines to reduce the c thalia of reinjury. You can anticipate post op appointments in our office at approximately 3 weeks and 6 weeks after your surgery. INCISION CARE: If your incision is not draining you do NOT need to cover it with a dressing. Keep your incision clean, dry and intact. In most cases, we apply skin glue, valeriano or sutures to the incision at the time of surgery. This will be like a crust or have the appearance of a scab and will fall off in time on its own. The stitches or valeriano need to be removed at 3 weeks post op appointment. You may begin to shower 3 days after surgery (this allows the glue to pino well). However, please avoid scrubbing the incision site or peeling off any of the skin glue. This will ensure optimal healing of your incision. Also, during this time avoid soaking the incision area in water - this includes swimming pools, hot tubs or baths. No ointments, lotions or oils on the incision until your surgeon allows. Leave valeriano, sutures or glue in place. Neurological dysfunction that comes on suddenly can also be a sign of a stroke. Below some common symptoms of a stroke are listed: B - balance difficulty such as sudden onset walking or leaning to one side - NEW E - eye problem such as sudden double vision or trouble seeing on one side - NEW F - Facial weakness or numbness on one side - NEW A - Arm or leg weakness or numbness on one side - NEW S - Slurred speech or difficulty with word finding - NEW T - Time is BRAIN! Call 911 as soon as you recognize these symptoms Diet: Consume a regular diet rich in vegetables and lean protein such as chicken or fish. You should consume in a ratio of approximately 20% fats|40% carbohydrates|40%protein. Vegetables, sweet potatoes, brown rice or quinoa are examples of good carbohydrates. Chips, white bread, cookies and sweets/sugar are examples of bad carbohydrates. Limit your bad carbs, go wild with good carbs. "Life's Simple 7" Guidelines as per [place] [employer] These will help you reclaim your life after surgery and mailing machine helper in your recovery, keeping in mind your restrictions. (1) Get Active. Physical activity can help people lose weight, control high blood pressure and cholesterol, feel emotionally better, and sleep better. (2) Control Cholesterol. Avoid a diet high in saturated fat, trans fat, & cholesterol. Limit whole milk & cream, ice cream, butter, egg yolks, processed meats (like sausage and hot dogs), and fatty meats. Choose healthy foods that are low in saturated fat, trans fat and cholesterol which include: Fruits and vegetables, fiber rich grain products (like whole grain pasta and brown rice), lean meat such as chicken, fish, nuts, seeds, and legumes. (3) Eat Better. Eat small portions. Shop at the grocery with a list and do not stray from it. Tips for a healthy diet include: Limit sodium intake to less than 1500mg daily, avoid prepackaged, processed, and fast foods, choose a diet rich in fruits, vegetables, and whole grain, high fiber foods, and limit saturated & cholesterol in your diet. (4) Manage Blood Pressure. If you have high blood pressure, you should have a cuff at home so that you can check your blood pressure regularly. Be sure you have a good cuff. An arm one is generally better than a wrist one. Bring the cuff to a doctor's appointment to validate that the measurements that your cuff are taking are accurate. Take your blood pressure twice daily when you are sitting down and relaxing. Record the numbers in a log and bring this log with you to your doctors' appointments. (5) Lose Weight if your BMI is above 25. A healthy BMI is between 19-25. To calculate Your BMI, you may use a Standard BMI Calculator on the NIH BMI website: <www.nhlbi.nih.gov/guidelines/obesity/BMI/bmicalc.htm>. Weigh oneself daily. If you are overweight, set a goal to lose weight. A pound a week loss if needed is a good target. (6) Reduce Blood Sugar. Limit foods and liquids with "added sugars." (Added sugars include sucrose, fructose, glucose, maltose, dextrose, high fructose corn syrup, corn syrup, concentrated fruit juice and honey). (7) Stop Smoking. If you smoke, quitting smoking is one of the best things that you can do for your health. Smoking increases your risk of heart attack, stroke, and peripheral vascular disease, which is a build-up of plaque in your arteries. Please discard all the cigarettes and lighters in your house. Have a plan for what you will do when you have the urge to smoke. Direct and second- hand smoke shortens your life as well as the lives of your family, friends and others around you. For your health and the health of those around you, please consider quitting! Proper Bending Body Mechanics: Maintain a wide stance with one foot slightly in front of the other. Keep your back straight. Bend utilizing the strength in your hips and knees. Do not bend at the waist. Maintain the lifted object at your waist-level close to your body. Avoid lifting weight that causes immediately pain or pain anywhere in the body afterwards. Smoking/Nicotine If there was ever one thing that you could do to increase your overall health, decrease your risk of cardiovascular problems by about 39% the second you make the choice, it is to STOP SMOKING. Your body's most instant gratification is the second you stop smoking. We have all heard the studies, read the articles but it is true, smoking is extremely bad for your overall health, and moreover it is detrimental to your bone health. Nicotine, IN ANY FORM, kills bone cells, prevents your body from healing fractures, and significantly prolongs healing after surgery. In spine surgery specifically, it increases your risk of not healing your bones to create a fusion and increases your risk of having a revision surgery due to this up to 60%. I know it is hard. I know it feels impossible. But there are ways. Take control of your life. We are here to help you through it. And when you are ready, ask us and we can direct you to help if you desire. Use the START Plan to Quit Smoking (please visit the Helpguide.org website listed below for more information): S = Set a quit date. Choose a date within the next 2 weeks, so you have enough time to prepare without losing your motivation to quit. If you mainly smoke at work, quit on the weekend, so you have a few days to adjust to the change. T = Tell family, friends, and co-workers that you plan to quit. Let your friends and family in on your plan to quit smoking and tell them you need their support and encouragement to stop. Look for a quit brandon who wants to stop smoking as well. You can help each other get through the rough times. A = Anticipate and plan for the challenges you'll face while quitting. Most people who begin smoking again do so within the first 3 months. You can help yourself make it through by preparing ahead for common challenges, such as nicotine withdrawal and cigarette cravings. R = Remove cigarettes and other tobacco products from your home, car, and work. Throw away all your cigarettes (no emergency pack!), lighters, ashtrays, and matches. Wash your clothes and freshen up anything that smells like smoke. Shampoo your car, clean your drapes and carpet, and steam your furniture. T = Talk to your doctor about getting help to quit. Your doctor can prescribe medication to help with withdrawal and suggest other alternatives. If you can't see a doctor, you can get many products over the counter at your local pharmacy or grocery store, including the nicotine patch, nicotine lozenges, and nicotine gum. Resources for Quitting Smoking: <https://www.[place].gov/documents/mdc/Quit_Tobacco_Resources_f or_patients_313480_7.pdf> Supplementation: Take recommended dosages of Vitamin D and Calcium to help fortify your bones and help them to heal. See your health maintenance packet for dosages and recommended levels. DVT/VTE prophylaxis: You will be given compression stockings from the hospital. Wear these daily for the first two weeks after surgery. You may take them off at night. You may be prescribed a medication to help thin your blood. Take this as directed. If you are not prescribed this medication, early and frequent ambulation has been shown to be the best prophylaxis to deep vein thrombosis and sequelae related to this event. Discharge Disposition: HOME SELF-CARE
--- NOTE | 2021-06-05 18:30 | PN ---
PROGRESS NOTE DATE OF SERVICE: 06/05/2021 This 50-year-old woman who was admitted after back surgery is improving significantly. No chest pain. No palpitations. No fever. PHYSICAL EXAMINATION: Alert and oriented x3. Pulse is 82, blood pressure 110/60, respiration 18, temperature 98.9, pulse ox 94% on room air. HEENT: Conjunctivae normal. NECK: No jugular venous distention. CARDIOVASCULAR: S1, S2 muffled. RESPIRATION: Breath sounds diminished at the bases. No rhonchi. No crackles. ABDOMEN: Soft. NERVOUS SYSTEM: No focal deficit. EXAMINATION OF THE BACK: Status post surgery. LABS: Accu-Cheks 154, 174, 127. ASSESSMENT: 1. Status post L5-S1 surgery for L5 spondylosis. 2. Diabetes mellitus, type 2, controlled blood sugars. 3. Hypertension. 4. Hyperlipidemia. 5. History of degenerative joint disease. 6. History of rheumatoid arthritis. 7. History of migraine. 8. History of lumbar stenosis. 9. History of MRSA. 10.History of section. 11.History of uterine ablation. 12.Remote history of nicotine dependence. 13.Obesity with body mass index of 40.5. 14.FULL CODE. RECOMMENDATION AND DISCUSSION: I recommend to continue current medications, continue with the monitoring, symptomatic treatment. Continue the home medications. Follow closely with primary physician in the outpatient setting. Rest of the recommendations per Orthopedic Surgery. Further recommendations to follow. MMODL / IJN: [id number] /
== END 2021-06-05 13:40 | disposition home or self-care (01) | DRG 460 ==
LOC: OR 06:24 → 5NMEDONC 11:39 → OR 06-05 08:24
PROVIDERS: ADMIT Orthopaedic Surgery; ATTEND Orthopaedic Surgery
PROC: 8E0WXBG Computer Assisted Procedure of Trunk Region, With Computerized Tomography (ICD-10-PCS; 2021-06-03)
PROC: 0SG30AJ Fusion of Lumbosacral Joint with Interbody Fusion Device, Posterior Approach, Anterior Column, Open Approach (ICD-10-PCS; principal; 2021-06-05)
PROC: 01NR0ZZ Release Sacral Nerve, Open Approach (ICD-10-PCS; 2021-06-05)
PROC: 0SB40ZZ Excision of Lumbosacral Disc, Open Approach (ICD-10-PCS; 2021-06-05)
PROC: 01NB0ZZ Release Lumbar Nerve, Open Approach (ICD-10-PCS; 2021-06-05)
PROC: 4A11X4G Monitoring of Peripheral Nervous Electrical Activity, Intraoperative, External Approach (ICD-10-PCS; 2021-06-05)
DX: M43.07 Spondylolysis, lumbosacral region (principal); Z68.41 Body mass index [BMI] 40.0-44.9, adult; Z20.822 Contact with and (suspected) exposure to COVID-19; M43.17 Spondylolisthesis, lumbosacral region; M48.07 Spinal stenosis, lumbosacral region; M40.209 Unspecified kyphosis, site unspecified; G43.909 Migraine, unspecified, not intractable, without status migrainosus; M54.17 Radiculopathy, lumbosacral region; M06.9 Rheumatoid arthritis, unspecified; E11.9 Type 2 diabetes mellitus without complications; E66.9 Obesity, unspecified; M19.90 Unspecified osteoarthritis, unspecified site; E78.5 Hyperlipidemia, unspecified; I10 Essential (primary) hypertension; Z79.899 Other long term (current) drug therapy; Z86.14 Personal history of Methicillin resistant Staphylococcus aureus infection; Z87.891 Personal history of nicotine dependence; Z88.1 Allergy status to other antibiotic agents; Z88.5 Allergy status to narcotic agent; Z88.0 Allergy status to penicillin; Z98.51 Tubal ligation status; Z79.84 Long term (current) use of oral hypoglycemic drugs
CPT/HCPCS: 72100; 72131; 80048; 81025; 85025; 86850; 86900; 86901; 87635

== ENCOUNTER → 2022-01-05 | Outpatient (CLI) | payer OTHER ==
[2022-01-05 14:18] VITALS: BP 111/67; PULSE 73; RESP 18; TEMP 98.6
--- NOTE | 2022-01-05 14:20 | P.PAINPG ---
Objective - Vital Signs Vital signs: Intake & Output 01/04/22 01/05/22 01/05/22 18:59 06:59 18:59 Weight 117.934 kg PQRS Measure Charge Sheet Comment: A 51 yr old female with a history of severe and chronic low back pain secondary to lumbar degenerative disc diseases and lumbar spondylosis with facet arthropathy presents today for LBP evaluation. Pain level is 7/10 in intensity. Pain is localized in the lower back with radiation to the front thigh/knees and in the hips, constant and burning in the hips, achy in the thighs/knees. Pain is provoked by standing/walking for periods of 20 min or more and climbing stairs. Pain is alleviated with PT last in November 2021 x 6 weeks, TENS use while in PT, heat, medications (Baclofen, Valium, Celebrex), topicals, repositioning and rest. Since last visit, pt underwent a L5-S1 LIF w Dr Patel. Interventional pain procedures completed include LESI L5-S1 x1 Patient is currently on Baclofen, Valium, Celebrex Patient denies any side effects of the medication(s), denies excessive drowsiness or sleepiness, denies suicidal ideation and reports that the current pain medication is helping to control the pain and improve activities of daily living. Patient denies any motor or sensory deficits. Patient denies any fever or night sweats, denies any change in the bowel movements or urination. Physical Examination: -Constitutional: Cooperative. Not in acute distress . - Neurologic: Cranial nerve II to XII intact. No focal neurological deficits. - Psychatric: Alert & oriented x 3. Matching mood & appropriate affect. Judgment and insight intact. - Musculoskeletal: Cervical spine: Muscle bulk/ tone/ strength in the bilateral upper extremities normal Vertebral body tenderness to palpation over Spurling test positive Distraction test positive Facet loading test positive Thoracic spine Muscle bulk / tone/ strength in the bilateral paraspinal muscles normal Vertebral body tender to palpation over Facet loading test positive Lumbar spine: Motor bulk/ tone/ strength lower extremities , thigh and legs : 5/5 Deep tendon reflexes : Normal Knee Jerk. Normal Ankle Jerk . Vertebral body tenderness to palpation over L4, L5 Lumbar Facet Loading Test positive Straight Leg Raise: positive at 30 degrees right side/ left side Gaenslen's Test positive Sacral spine : Severe tenderness over the Sacroiliac joint: right side / left side Range of motion: Flexion of the lumbar spine <60 degrees Range of motion: Extension of the lumbar spine <20 degrees Gaenslen's Test positive Antoni's Test positive Leyda test: positive right side / left side Thigh Thrust Test Sacral Thrust Test Assessment and plan: Chronic low back pain secondary to lumbar degenerative disc disease , lumbar spondylosis with facet arthropathy without myelopathy Recommendation of LESI L4-L5. May need a series of injections, up to 3 within a 6 mo period, for optimal pain relief. Risks, benefits of procedure discussed and pt verbalized understanding. Denies anticoagulant use and admits to a medical history of diabetes. Protocol for discontinuation/ continuation of medications kamron procedure discussed. All patient questions answered MAPS reviewed and it was appropriate. I have spent less than 30 minutes on patient care today. Dr Eddy was available by phone for the evaluation of this patient. The time was used to review the medical records including relevant urine studies and Prescription history (MAPs), review of the available imaging, evaluation and examination of the patient, coordination of care with the medical staff and if applicable referring physicians, as well as creation of the medical record PQRS Narrative: Smoking Status Former smoker Hx Alcohol Use (MH) Yes Home Medications: Ambulatory Orders Liraglutide [Victoza 2-Brennan] 1.8 mg SQ DAILY 07/10/18 Ascorbic Acid [Vitamin C] 500 mg PO DAILY 03/11/21 Atorvastatin [Lipitor] 10 mg PO DAILY 03/11/21 Baclofen [Lioresal] 20 mg PO TID 03/11/21 Black Cohosh 540 mg PO DAILY 03/11/21 Cholecalciferol [Vitamin D3 (25 Mcg = 1000 Iu)] 25 mcg PO DAILY 03/11/21 Docusate [Colace] 100 mg PO DAILY 03/11/21 Empagliflozin/Metformin HCl [Synjardy 12.5-500 mg Tablet] 1 each PO DAILY 03/11/21 Hydroxychloroquine Sulfate [Plaquenil] 200 mg PO BID 03/11/21 Ibuprofen [Motrin] 800 mg PO Q8H 03/11/21 Linaclotide [Linzess] 145 mcg PO DAILY 03/11/21 Propranolol HCl [Inderal] 60 mg PO DAILY 03/11/21 HYDROcodone/APAP 10-325MG [[place] 10-325] 1 tab PO Q4HR PRN #56 tab 06/05/21 cefaDROXiL [Duricef] 500 mg PO Q12HR 5 Days #10 cap 06/05/21 Controlled Substance Measures - Controlled Substance Measures Is patient prescribed a controlled substance at discharge?: No
== END ==
LOC: PNWHC3 13:48
PROVIDERS: ATTEND Specialist
DX: M51.36 Other intervertebral disc degeneration, lumbar region (principal); M47.816 Spondylosis without myelopathy or radiculopathy, lumbar region; G89.29 Other chronic pain; Z87.891 Personal history of nicotine dependence; Z88.1 Allergy status to other antibiotic agents; Z88.0 Allergy status to penicillin; Z88.5 Allergy status to narcotic agent; Z88.8 Allergy status to other drugs, medicaments and biological substances
CPT/HCPCS: 99211

== ENCOUNTER → 2022-03-02 | Outpatient (CLI) | payer OTHER ==
[2022-03-02 12:37] VITALS: BP 144/69; PULSE 69; RESP 16
--- NOTE | 2022-03-04 07:38 | P.PAINPG ---
PQRS Measure Charge Sheet Comment: A 51 yr old female with a history of severe and chronic low back pain secondary to lumbar degenerative disc diseases and lumbar spondylosis with facet arthropathy without myelopathy presents today for evaluation s/p ELENA L4-5. Pt states she experienced 70% relief till today s/p procedure. Pain level is curr ently at 3/10 in intensity, constant, pressure in character w shooting towards the R side of lumbar spine and RLE. Pain is provoked by bending/ lifting/ twisting. Pain is alleviated with PT in November 2021, heat, medications (Ibuprofen, Valium, Baclofen), repositioning and rest. Interventional pain procedures completed include ELEAN L4-L5 x1 Patient is currently on Motrin, Valium, Baclofen. Patient denies any side effects of the medication(s), denies excessive drowsiness or sleepiness, denies suicidal ideation and reports that the current pain medication is helping to control the pain and improve activities of daily living. Patient denies any motor or sensory deficits. Patient denies any fever or night sweats, denies any change in the bowel movements or urination. Physical Examination: -Constitutional: Cooperative. Not in acute distress . - Neurologic: Cranial nerve II to XII intact. No focal neurological deficits. - Psychatric: Alert & oriented x 3. Matching mood & appropriate affect. Judgment and insight intact. - Musculoskeletal: Cervical spine: Muscle bulk/ tone/ strength in the bilateral upper extremities normal Vertebral body tenderness to palpation over Spurling test positive Distraction test positive Facet loading test positive Thoracic spine Muscle bulk / tone/ strength in the bilateral paraspinal muscles normal Vertebral body tender to palpation over Facet loading test positive Lumbar spine: Motor bulk/ tone/ strength lower extremities , thigh and legs : 5/5 Deep tendon reflexes : Normal Knee Jerk. Normal Ankle Jerk . Vertebral body tenderness to palpation over L4 Lumbar Facet Loading Test positive Straight Leg Raise: positive at 30 degrees right side/ left side Gaenslen's Test positive Sacral spine : Severe tenderness over the Sacroiliac joint: right side / left side Range of motion: Flexion of the lumbar spine <60 degrees Range of motion: Extension of the lumbar spine <20 degrees Gaenslen's Test positive Antoni's Test positive Leyda test: positive right side / left side Thigh Thrust Test Sacral Thrust Test Assessment and plan: Chronic low back pain secondary to lumbar degenerative disc disease , lumbar spondylosis with facet arthropathy without myelopathy Recommendation of R paramedian L4-L5. May need a series of injections, up to 3 within a 6 mo period, for optimal pain relief. Risks, benefits of procedure discussed and pt verbalized understanding. Denies anticoagulant use and admits to a medical history of diabetes. Protocol for discontinuation/ continuation of medications kamron procedure discussed. All patient questions answered MAPS reviewed and it was appropriate. I have spent less than 30 minutes on patient care today. Dr Eddy was available by phone for the evaluation of this patient. The time was used to review the medical records including relevant urine studies and Prescription history (MAPs), review of the available imaging, evaluation and examination of the patient, coordination of care with the medical staff and if applicable referring physicians, as well as creation of the medical record PQRS Narrative: Smoking Status Former smoker Hx Alcohol Use (MH) Yes Home Medications: Ambulatory Orders Liraglutide [Victoza 2-Brennan] 1.8 mg SQ DAILY 07/10/18 Ascorbic Acid [Vitamin C] 500 mg PO DAILY 03/11/21 Atorvastatin [Lipitor] 10 mg PO DAILY 03/11/21 Baclofen [Lioresal] 20 mg PO TID 03/11/21 Black Cohosh 540 mg PO DAILY 03/11/21 Docusate [Colace] 100 mg PO DAILY 03/11/21 Hydroxychloroquine Sulfate [Plaquenil] 200 mg PO BID 03/11/21 Ibuprofen [Motrin] 800 mg PO Q8H PRN 03/11/21 Propranolol HCl [Inderal] 60 mg PO DAILY 03/11/21 Empagliflozin/Metformin HCl [Synjardy Xr 25-1,000 mg Tablet] 1 tab PO DAILY 02/11/22 Ergocalciferol [Vitamin D2 (1250 Mcg = 63210 Iu)] 1,250 mcg PO WEEKLY 02/11/22 Ferrous Sulfate [Feosol] 325 mg PO BID 02/11/22 diazePAM [Valium] 5 - 10 mg PO HS 02/11/22 Controlled Substance Measures - Controlled Substance Measures Is patient prescribed a controlled substance at discharge?: No
== END ==
LOC: PNWHC3 12:04
PROVIDERS: ATTEND Specialist
DX: M51.36 Other intervertebral disc degeneration, lumbar region (principal); M47.816 Spondylosis without myelopathy or radiculopathy, lumbar region; G89.29 Other chronic pain; Z87.891 Personal history of nicotine dependence; Z88.1 Allergy status to other antibiotic agents; Z88.0 Allergy status to penicillin; Z88.5 Allergy status to narcotic agent; Z88.8 Allergy status to other drugs, medicaments and biological substances
CPT/HCPCS: 99211

== ENCOUNTER 2022-04-02 06:46 | Day surgery (SDC) | payer OTHER ==
[2022-03-31 14:55] VITALS: BMI 44.2
[2022-04-02] MEDS ORDERED: LACTATED RINGERS 1,000 ML IV ONE (07:23)
[2022-04-02 07:25] VITALS: RESP 17; TEMP 98
[2022-04-02 07:26] LABS: Glucose,Whole Blood 119 mg/dL (70-110)
[2022-04-02] MEDS ORDERED: fentaNYL (PF) 50 MCG/ML 2 ML AMP ONE (07:30)
[2022-04-02] MEDS ORDERED: TRIAMCINOLONE ACETONIDE 40 MG/ML 1 ML VIAL ONE (07:30)
[2022-04-02] MEDS ORDERED: MIDAZOLAM 2 MG/2 ML VIAL ONE (07:30)
[2022-04-02] MEDS ORDERED: IOPAMIDOL M200 10 ML VIAL ONE (07:30)
--- NOTE | 2022-04-02 07:54 | P.PCN ---
Date of Procedure: 04/02/22 Description of Procedure: PREOPERATIVE DIAGNOSIS: 1-Lumbar radiculopathy 2- Lumber Degenerative Disc Diseases. POSTOPERATIVE DIAGNOSIS: 1-Lumbar radiculopathy. 2-Lumbar Degenerative Disc Diseases PROCEDURE 1. Lumbar epidural steroid injection under fluoroscopic guidance at the L3-4 level in the right paramedian approach. 2. Lumbar epidurogram. SURGEON: Patricio Lozano MD ANESTHESIA: Local with 1% lidocaine; and IV moderate conscious sedation with Versed and fentanyl Sedation time: EBL: Minimal PROCEDURE INDICATION: The patient with low back pain and radiculitis symptoms unresponsive to conservative treatment. Fluoroscopy was used to optimize visualization of the needle placement and to maximize safety. Previous epidural done at L3-L4 secondary to previous lumbar surgery. PROCEDURE DESCRIPTION / TECHNIQUE: The patient was seen and identified in the preoperative area. Risks, benefits, complications including but not limited to infections ,bleeding ,allergic reaction to the medications ,nerve damage and not complete pain relief , and alternatives were discussed with the patient. The patient agreed to proceed with the procedure and signed the consent. IV was started, and vital signs were stable. Patient was taken to the OR and time out was completed. The patient was placed in the prone position on procedure table and a pillow was placed under the abdomen to reduce lumbar lordosis. The lumbosacral area was prepped and draped in the usual sterile fashion with ChloraPrep.Patient was closely monitored during the procedure. Conscious sedation was used during the procedure to decrease patients anxiety. Vital signs were monitered during the entire procedure. Using anterior-posterior fluoroscopy, the L3-4 interlaminar space was identified and the skin over this site was marked and then infiltrated with 1% lidocaine subcutaneously. Subsequently, a 18-gauge 6inch Tuohy epidural needle was inserted and advanced toward the epidural space using the Loss of resistance to air technique and guided by AP and lateral fluoroscopy. The correct needle position in the epidural space was verified with the injection of 1 mL of the water soluble contrast dye Omnipaque 180 contrast and observing an excellent epidurogram with the epidural spread of the dye, after negative aspiration for blood and CSF and in the absence of paresthesias. Again after negative aspiration, a 5 ml mixture containing 40 mg of Kenalog and 4 ml of preservative free Normal Salin solution was injected and a washout of epidurogram was seen. Needle was withdrawn intact, skin was cleansed, and bandages were applied. patient tolerated procedure well and was transferred to PACU in stable condition.A copy of the needle placement picture was saved to the fluoroscopy machine. COMPLICATIONS: None
[2022-04-02] MEDS ORDERED: IV FLUID CONTINUATION 1,000 ML IV ONE (07:58)
[2022-04-02 08:14] VITALS: BP 138/91; PULSE 77
--- NOTE | 2022-04-02 10:21 | FL ---
EXAMINATION TYPE: FL guided pain mgmt statistic DATE OF EXAM: 04/02/2022 FLUOROSCOPY Fluoroscopy time of 18 seconds was used during lumbar epidural injection. 2 image/s document/s the p [email or web address].
== END 2022-04-02 08:30 | disposition home or self-care (01) ==
LOC: ORPAIN 06:46
PROVIDERS: ATTEND Anesthesiology
DX: M51.16 Intervertebral disc disorders with radiculopathy, lumbar region (principal)
CPT/HCPCS: 81025; 62323; J2250; J3301; J3010; Q9966; 99152

== ENCOUNTER → 2022-05-18 | Outpatient (CLI) | payer OTHER ==
[2022-05-18 13:03] VITALS: BP 154/89; PULSE 72; RESP 16; TEMP 98.4
--- NOTE | 2022-05-18 15:38 | P.PAINPG ---
Objective - Vital Signs Vital signs: Intake & Output 05/17/22 05/18/22 05/18/22 18:59 06:59 18:59 Weight 117.934 kg PQRS Measure Charge Sheet Comment: A 51 yr old female with a history of severe and chronic low back pain secondary to lumbar DDD and spondylosis with facet arthropathy without myelopathy and R Sacroiliitis presents today for evaluation s/p ELENA L3-L4 Pt states she experienced 0% pain relief s/p procedure. Pain level is currently at 7/10 in intensity, constant, localized in the R lumbar spine, sharp in character w shooting towards the R buttock. Pain is provoked by standing for periods of 20 min or more. Pain is alleviated with PT x 6 wks in December 2021, chiropractic treatments weekly x 1 yr which ended in December 2020, heat, meds (Ibu), sitting, reclining and rest. Interventional pain procedures completed include ELENA L3-L4 Patient is currently on Ibuprofen Patient denies any side effects of the medication(s), denies excessive drowsiness or sleepiness, denies suicidal ideation and reports that the current pain medication is helping to control the pain and improve activities of daily living. Patient denies any motor or sensory deficits. Patient denies any fever or night sweats, denies any change in the bowel movements or urination. Physical Examination: -Constitutional: Cooperative. Not in acute distress . - Neurologic: Cranial nerve II to XII intact. No focal neurological deficits. - Psychatric: Alert & oriented x 3. Matching mood & appropriate affect. Judgment and insight intact. - Musculoskeletal: Cervical spine: Muscle bulk/ tone/ strength in the bilateral upper extremities normal Vertebral body tenderness to palpation over Spurling test positive Distraction test positive Facet loading test positive Thoracic spine Muscle bulk / tone/ strength in the bilateral paraspinal muscles normal Vertebral body tender to palpation over Facet loading test positive Lumbar spine: Motor bulk/ tone/ strength lower extremities , thigh and legs : 5/5 Deep tendon reflexes : Normal Knee Jerk. Normal Ankle Jerk . Vertebral body tenderness to palpation over Lumbar Facet Loading Test positive Straight Leg Raise: positive at 30 degrees right side/ left side Gaenslen's Test positive Sacral spine : Severe tenderness over the Sacroiliac joint: right side / left side Range of motion: Flexion of the lumbar spine <60 degrees Range of motion: Extension of the lumbar spine <20 degrees Gaenslen's Test positive on R Leyda test: positive right side / left side Thigh Thrust Test R Sacral Thrust Test Assessment and plan: Chronic LBP secondary to lumbar DDD, spondylosis with facet arthropathy without myelopathy, R Sacroiliitis Recommendation of R SI injection. May need a series, up to 4 within a 12 mo period, for optimal pain relief. Risks, benefits of procedure discussed and pt verbalized understanding. Admits to anticoagulant use or medical history of diabetes. Protocol for discontinuation/ continuation of medications kamron procedure discussed. All patient questions answered I have spent less than 30 minutes on patient care today. Dr Eddy was available by phone for the evaluation of this patient. The time was used to review the medical records including relevant urine studies and Prescription history (MAPs), review of the available imaging, evaluation and examination of the patient, coordination of care with the medical staff and if applicable referring physicians, as well as creation of the medical record PQRS Narrative: Smoking Status Former smoker Hx Alcohol Use (MH) Yes Home Medications: Ambulatory Orders Liraglutide [Victoza 2-Brennan] 1.8 mg SQ DAILY 07/10/18 Ascorbic Acid [Vitamin C] 500 mg PO DAILY 03/11/21 Atorvastatin [Lipitor] 10 mg PO DAILY 03/11/21 Baclofen [Lioresal] 20 mg PO TID 03/11/21 Black Cohosh 540 mg PO DAILY 03/11/21 Docusate [Colace] 100 mg PO DAILY 03/11/21 Hydroxychloroquine Sulfate [Plaquenil] 200 mg PO BID 03/11/21 Ibuprofen [Motrin] 800 mg PO Q8H PRN 03/11/21 Propranolol HCl [Inderal] 60 mg PO DAILY 03/11/21 Empagliflozin/Metformin HCl [Synjardy Xr 25-1,000 mg Tablet] 1 tab PO DAILY 02/11/22 Ergocalciferol [Vitamin D2 (1250 Mcg = 47943 Iu)] 1,250 mcg PO FR 02/11/22 Ferrous Sulfate [Feosol] 325 mg PO BID 02/11/22 diazePAM [Valium] 5 - 10 mg PO HS 02/11/22 Controlled Substance Measures - Controlled Substance Measures Is patient prescribed a controlled substance at discharge?: No
== END ==
LOC: PNWHC3 12:33
PROVIDERS: ATTEND Specialist
DX: M47.816 Spondylosis without myelopathy or radiculopathy, lumbar region (principal); M46.1 Sacroiliitis, not elsewhere classified; M51.36 Other intervertebral disc degeneration, lumbar region; G89.29 Other chronic pain; Z79.01 Long term (current) use of anticoagulants; E11.9 Type 2 diabetes mellitus without complications; Z79.84 Long term (current) use of oral hypoglycemic drugs
CPT/HCPCS: 99211

== ENCOUNTER → 2022-10-07 | Outpatient (CLI) | payer OTHER ==
--- NOTE | 2022-10-08 20:15 | MR ---
EXAMINATION TYPE: MR lumbar spine wo con DATE OF EXAM: 10/07/2022 COMPARISON: Outside lumbar spine x-ray December 04, 2021 HISTORY: Low back pain that radiates into right hip. History of surgery June 03, 2021. TECHNIQUE: Multiplanar, multisequence imaging of the lumbar spine is performed without IV contrast. FINDINGS: Sagittal images of the lumbar spine show vertebral body heights and alignment to appear sat isfactory. There is artifact from metallic disc material at L5-S1 level. This artifact from bilateral posterior interpedicular rods and screws at L5-S1 level. Multilevel disc desiccation. There is moder ate disc space narrowing with heterogeneous Modic type I endplate changes at L2-L3 level. There is mi ld disc space narrowing at L4-L5 level. The conus medullaris is normal in position and signal ending inferior T12 level. Axial images show T12-L1 and L1-L2 levels to appear within normal limits. Axial images at L2-L3 level show mild to moderate broad disc bulge mildly effacing anterior thecal sa c and causing mild to moderate bilateral anterior inferior neural foraminal narrowing. Axial images at L3-L4 level mild broad-based posterior disc protrusion mildly effacing the anterior t hecal sac. Patent bilateral neural foramina. Axial images at L4-L5 level show artifact from surgical changes below this. Dhtv-[id number] broad di sc bulge minimally effacing anterior thecal sac. Bilateral neural foramina are patent. Axial images at L5-S1 level shows artifact from surgical change. Bilateral neural foramina are fairly well patent on axial images 12 and 13 series 701. Spinal canal is preserved. Paraspinal muscle bulk is maintained. IMPRESSION: Postsurgical change L5-S1 level with satisfactory alignment. Multilevel degenerative pretty ge in the lumbar spine as detailed above. No significant findings seen to account for patient's right -sided radiculopathy type symptoms.
== END | disposition home or self-care (01) ==
LOC: RADMRIMAIN 14:07
PROVIDERS: ATTEND Nurse Practitioner Family
DX: M43.26 Fusion of spine, lumbar region (principal); M47.816 Spondylosis without myelopathy or radiculopathy, lumbar region
CPT/HCPCS: 72148